=== PATIENT | male | born 1950 | race Caucasian/White ===

== ENCOUNTER 2017-02-22 09:44 | Emergency (ER) | payer MEDICARE, MEDICAID ==
[~2017-02-22] VITALS: Ht 188 cm; Wt 96.3 kg
[~2017-02-22 09:44] MED LIST: AMIO200T57 PO; APIX5TAB3 PO; ASPI-611 PO; ATOR20TA66 PO; CARV6.253 PO; FERR324T4 PO; FURO-149 PO; LORA-269 PO; LOSA25TA96 PO; MAGN64TA10 PO; NITR0.4T SL; PANT40TA4 PO; POTA20TA10 PO
[2017-02-22] MEDS ORDERED: SULF1TAB48 PO (10:09)
[2017-02-22] MEDS ORDERED: CefTRIAXone 1000mg IM Kit (w/lidocaine diluent) IM ONE (10:10)
[2017-02-22 10:41] VITALS: BP 138/81
== END 2017-02-22 10:35 | disposition home or self-care (01) ==
LOC: ER 09:45
DX: L03.032 Cellulitis of left toe (principal); I48.91 Unspecified atrial fibrillation; I25.10 Atherosclerotic heart disease of native coronary artery without angina pectoris; I11.0 Hypertensive heart disease with heart failure; I50.9 Heart failure, unspecified; Z88.1 Allergy status to other antibiotic agents
CPT/HCPCS: 96372; 99284; J0696

== ENCOUNTER 2017-03-04 08:37 | Day surgery (SDC) | payer MEDICARE, MEDICAID ==
[~2017-03-04] VITALS: Ht 188 cm; Wt 100.0 kg
[~2017-03-04 08:37] MED LIST changes: +SULF1TAB48 PO
[2017-03-04] MEDS ORDERED: FURO-150 PO (09:12)
[2017-03-04] MEDS ORDERED: MULT-1085 PO (09:12)
[2017-03-04] MEDS ORDERED: SACU1TAB PO (09:12)
[2017-03-04] MEDS ORDERED: normal saline 1000ml 1,000 ML IV SCH (09:15)
[2017-03-04] MEDS ORDERED: FERR325T28 PO (09:28)
[2017-03-04] MEDS ORDERED: LORazepam 0.5 MG tablet PO PRN (09:45)
[2017-03-04 10:09] LABS: BASOPHILS # (AUTO) 0.1 X10'3 (0-0.2); BASOPHILS % (AUTO) 0.8 % (0-1); EOSINOPHILS # (AUTO) 0.3 X10'3 (0-0.9); EOSINOPHILS % (AUTO) 3.8 % (0-6); HEMATOCRIT 38.6 % (42.0-52.0); HEMOGLOBIN 12.9 g/dl (14.0-17.9); LYMPHOCYTES # (AUTO) 1.1 X10'3 (1.1-4.8); LYMPHOCYTES % (AUTO) 12.8 % (21-51); MEAN CORPUSCULAR HEMOGLOBIN 29.6 PG (27.0-31.0); MEAN CORPUSCULAR HGB CONC 33.5 % (33.0-36.5); MEAN CORPUSCULAR VOLUME 88.3 FL (78-98); MEAN PLATELET VOLUME 8.6 FL (7.4-10.4); MONOCYTES # (AUTO) 0.8 X10'3 (0-0.9); MONOCYTES % (AUTO) 8.6 % (2-12); NEUTROPHILS # (AUTO) 6.6 X10'3 (1.8-7.7); PLATELET COUNT 252 X10'3 (140-440); RED BLOOD COUNT 4.37 X10'6 (4.70-6.10); RED CELL DISTRIBUTION WIDTH 16.5 % (11.5-14.5)
[2017-03-04 10:14] LABS: ALBUMIN 3.5 G/DL (3.4-5.0); ANION GAP 8 (8-16); BLOOD UREA NITROGEN 19 MG/DL (7-18); BUN/CREATININE RATIO 11.2 (5.4-32.0); CALCIUM 9.1 MG/DL (8.5-10.1); CHLORIDE 101 MMOL/L (99-107); GLUCOSE 95 MG/DL (70-104); POTASSIUM 3.7 MMOL/L (3.5-5.1); SODIUM 140 MMOL/L (135-145); TOTAL CARBON DIOXIDE 30.6 MMOL/L (24-32); eGFR 40 ML/MIN
[2017-03-04 10:15] VITALS: BP 155/98
[2017-03-04] MEDS ORDERED: iohexol 350MG/ML 100ml bottle IV ONE (12:11)
[2017-03-04] MEDS ORDERED: iohexol 350 MG/ML 50ML vial IV ONE (12:12)
[2017-03-04 14:34] VITALS: BP 145/82
[2017-03-04 14:42] VITALS: BP 145/82
== END 2017-03-04 14:42 | disposition home or self-care (01) ==
LOC: SSTAY O 08:37
PROVIDERS: ATTEND Radiology Vascular & Interventional Radiology
DX: I70.203 Unspecified atherosclerosis of native arteries of extremities, bilateral legs (principal); I70.1 Atherosclerosis of renal artery; I48.91 Unspecified atrial fibrillation; K21.9 Gastro-esophageal reflux disease without esophagitis; I10 Essential (primary) hypertension; I77.1 Stricture of artery; I72.3 Aneurysm of iliac artery; I25.10 Atherosclerotic heart disease of native coronary artery without angina pectoris; Z95.1 Presence of aortocoronary bypass graft; Z98.890 Other specified postprocedural states; Z87.891 Personal history of nicotine dependence; Z72.89 Other problems related to lifestyle; Z86.73 Personal history of transient ischemic attack (TIA), and cerebral infarction without residual deficits; Z88.6 Allergy status to analgesic agent; Z88.8 Allergy status to other drugs, medicaments and biological substances; Z79.82 Long term (current) use of aspirin; Z91.030 Bee allergy status
CPT/HCPCS: 36415; 75635; 80048; 85025; J7030; Q9967

== ENCOUNTER 2017-03-20 09:34 | Inpatient (IN) | payer MEDICARE, MEDICAID ==
[~2017-03-20] VITALS: Ht 188 cm; Wt 100.0 kg
[~2017-03-20 09:34] MED LIST changes: -CARV6.253 PO; -FERR324T4 PO; +FERR325T28 PO; -FURO-149 PO; +FURO-150 PO; -LOSA25TA96 PO; -MAGN64TA10 PO; +MULT-1085 PO; +SACU1TAB PO; -SULF1TAB48 PO
[2017-03-20 10:14] LABS: BASOPHILS % (AUTO) 0.1 % (0-1); EOSINOPHILS # (AUTO) 0.2 X10'3 (0-0.9); EOSINOPHILS % (AUTO) 1.6 % (0-6); HEMATOCRIT 34.5 % (42.0-52.0); HEMOGLOBIN 11.4 g/dl (14.0-17.9); LYMPHOCYTES # (AUTO) 0.9 X10'3 (1.1-4.8); LYMPHOCYTES % (AUTO) 8.8 % (21-51); MEAN CORPUSCULAR HEMOGLOBIN 29.3 PG (27.0-31.0); MEAN CORPUSCULAR HGB CONC 33.1 % (33.0-36.5); MEAN CORPUSCULAR VOLUME 88.4 FL (78-98); MEAN PLATELET VOLUME 9.1 FL (7.4-10.4); MONOCYTES # (AUTO) 1.1 X10'3 (0-0.9); MONOCYTES % (AUTO) 10.9 % (2-12); NEUTROPHILS # (AUTO) 7.9 X10'3 (1.8-7.7); NEUTROPHILS % (AUTO) 78.6 % (42-75); PLATELET COUNT 220 X10'3 (140-440); RED BLOOD COUNT 3.91 X10'6 (4.70-6.10)
[2017-03-20 10:21] LABS: INR 1.1 INR; PARTIAL THROMBOPLASTIN TIME 32 SECONDS (22-32); PROTHROMBIN TIME 11.7 SECONDS (9.0-12.0)
[2017-03-20 10:25] LABS: ALANINE AMINOTRANSFERASE 25 U/L (12-78); ALBUMIN 3.3 G/DL (3.4-5.0); ALBUMIN/GLOBULIN RATIO 0.9 (1.1-1.5); ALKALINE PHOSPHATASE 89 IU/L (46-116); ANION GAP 9 (8-16); ASPARTATE AMINO TRANSFERASE 11 U/L (10-37); BILIRUBIN,TOTAL 0.8 MG/DL (0.1-1.0); BLOOD UREA NITROGEN 28 MG/DL (7-18); CALCIUM 8.8 MG/DL (8.5-10.1); CHLORIDE 105 MMOL/L (99-107); GLUCOSE 97 MG/DL (70-104); POTASSIUM 4.1 MMOL/L (3.5-5.1); SODIUM 141 MMOL/L (135-145); eGFR 33 ML/MIN
[2017-03-20] MEDS ORDERED: FURO-149 PO (10:27)
[2017-03-20] MEDS ORDERED: SULF1TAB48 PO ×2 (10:27→17:46)
[2017-03-20] MEDS ORDERED: POTA20TA10 PO (10:27)
[2017-03-20] MEDS ORDERED: aspirin 81mg tab.chew PO ONE (11:15)
[2017-03-20] MEDS ORDERED: furosemide 10 MG/1 ML 10ml inj IV ONE (11:15)
[2017-03-20] MEDS ORDERED: nitroGLYCERIN 0.4mg SUBLingual tab SL PRN ×2 (11:15→18:05)
[2017-03-20] MEDS ORDERED: acetaminophen 325mg tablet PO ONE (11:50)
[2017-03-20] MEDS ORDERED: PER10325T PO (14:01)
[2017-03-20] MEDS ORDERED: SULF-18 (14:02)
[2017-03-20 14:37] VITALS: BP 125/60
[2017-03-20 17:30] VITALS: BP 144/71
[2017-03-20] MEDS ORDERED: LORazepam 1 MG tablet PO PRN (18:05)
[2017-03-20 19:00] VITALS: BP 131/66
[2017-03-20] MEDS ORDERED: sulfamethoxazole/trimethoprim DS (800/160mg) tablet PO SCH (20:00)
[2017-03-20] MEDS: sulfamethoxazole/trimethoprim DS (800/160mg) tablet PO SCH (20:18)
[2017-03-20] MEDS: pantoprazole 40mg Tablet.DR PO SCH (20:18)
[2017-03-20] MEDS: apixaban 5mg tablet PO SCH (20:19)
[2017-03-20] MEDS: sacubitril/valsartan 24mg-26mg tablet PO SCH (20:19)
[2017-03-20] MEDS: oxyCODONE/APAP 10/325mg tablet PO SCH (20:21)
[2017-03-20] MEDS ORDERED: ipratropium/albuterol 3ml nebule NEB PRN (22:35)
[2017-03-20] MEDS ORDERED: methylPREDNISolone sod succ 125mg/2ml vial IV ONE (22:41)
[2017-03-20] MEDS ORDERED: azithromycin/NS 500mg/250ml 250 ML IV SCH (22:44)
[2017-03-20 23:00] VITALS: BP 122/55
[2017-03-21] MEDS ORDERED: methylPREDNISolone sod succ 125mg/2ml vial IV SCH (02:00)
[2017-03-21 03:00] VITALS: BP 111/48
[2017-03-21] MEDS: methylPREDNISolone sod succ 125mg/2ml vial IV SCH ×2 (04:44→10:54)
[2017-03-21 06:00] VITALS: BP 115/62
[2017-03-21 07:02] LABS: BASOPHILS % (AUTO) 0.1 % (0-1); EOSINOPHILS # (AUTO) 0.1 X10'3 (0-0.9); EOSINOPHILS % (AUTO) 1.2 % (0-6); HEMATOCRIT 32.1 % (42.0-52.0); LYMPHOCYTES # (AUTO) 0.3 X10'3 (1.1-4.8); LYMPHOCYTES % (AUTO) 6.3 % (21-51); MEAN CORPUSCULAR HEMOGLOBIN 29.3 PG (27.0-31.0); MEAN CORPUSCULAR HGB CONC 34.1 % (33.0-36.5); MEAN CORPUSCULAR VOLUME 85.8 FL (78-98); MEAN PLATELET VOLUME 9.1 FL (7.4-10.4); MONOCYTES # (AUTO) 0.1 X10'3 (0-0.9); MONOCYTES % (AUTO) 1.3 % (2-12); NEUTROPHILS # (AUTO) 4.7 X10'3 (1.8-7.7); NEUTROPHILS % (AUTO) 91.1 % (42-75); PLATELET COUNT 199 X10'3 (140-440); RED BLOOD COUNT 3.74 X10'6 (4.70-6.10); RED CELL DISTRIBUTION WIDTH 16.8 % (11.5-14.5); WHITE BLOOD COUNT 5.1 X10'3 (4.5-11.0)
[2017-03-21 07:26] LABS: ALBUMIN 2.9 G/DL (3.4-5.0); ANION GAP 10 (8-16); BLOOD UREA NITROGEN 30 MG/DL (7-18); BUN/CREATININE RATIO 14.3 (5.4-32.0); CALCIUM 8.5 MG/DL (8.5-10.1); CHLORIDE 103 MMOL/L (99-107); GLUCOSE 142 MG/DL (70-104); MAGNESIUM 1.9 MG/DL (1.5-2.4); POTASSIUM 4.1 MMOL/L (3.5-5.1); SODIUM 138 MMOL/L (135-145); TOTAL CARBON DIOXIDE 24.6 MMOL/L (24-32); eGFR 32 ML/MIN
[2017-03-21 07:40] LABS: INR 1.2 INR; PROTHROMBIN TIME 12.2 SECONDS (9.0-12.0)
[2017-03-21] MEDS: pantoprazole 40mg Tablet.DR PO SCH (07:43)
[2017-03-21] MEDS: apixaban 5mg tablet PO SCH (07:43)
[2017-03-21] MEDS: sulfamethoxazole/trimethoprim DS (800/160mg) tablet PO SCH (07:46)
[2017-03-21] MEDS: oxyCODONE/APAP 10/325mg tablet PO SCH ×2 (08:00→10:49)
[2017-03-21] MEDS ORDERED: multivitamins, therapeutics tablet PO SCH (08:00)
[2017-03-21] MEDS ORDERED: furosemide 40mg tablet PO SCH (08:00)
[2017-03-21] MEDS ORDERED: atorvastatin 20mg tablet PO SCH (08:00)
[2017-03-21] MEDS ORDERED: ferrous sulfate 325mg tablet PO SCH (08:00)
[2017-03-21] MEDS ORDERED: amiodarone 200mg tablet PO SCH (08:00)
[2017-03-21] MEDS ORDERED: aspirin 81mg tablet.DR PO SCH (08:00)
[2017-03-21] MEDS ORDERED: potassium Cl 20 mEq SR tablet PO SCH (08:00)
[2017-03-21] MEDS: sacubitril/valsartan 24mg-26mg tablet PO SCH (10:54)
[2017-03-21 11:00] VITALS: BP 110/54
[2017-03-21] MEDS ORDERED: FURO-149 PO (11:32)
[2017-03-21] MEDS ORDERED: lactobacillus rhamnosus 10,000 MMU CELLS/CAPSULE PO SCH (17:30)
== END 2017-03-21 13:28 | disposition home or self-care (01) | DRG 291 ==
LOC: ER 09:34 → ED HOLD 11:47 → PCU 3S 18:18
PROVIDERS: ADMIT Family Medicine; ATTEND Legal Medicine
DX: I13.0 Hypertensive heart and chronic kidney disease with heart failure and stage 1 through stage 4 chronic kidney disease, or unspecified chronic kidney disease (principal); I50.23 Acute on chronic systolic (congestive) heart failure; J96.00 Acute respiratory failure, unspecified whether with hypoxia or hypercapnia; N17.9 Acute kidney failure, unspecified; I25.10 Atherosclerotic heart disease of native coronary artery without angina pectoris; I48.91 Unspecified atrial fibrillation; I73.9 Peripheral vascular disease, unspecified; N18.9 Chronic kidney disease, unspecified; F17.200 Nicotine dependence, unspecified, uncomplicated; I25.2 Old myocardial infarction; Z95.1 Presence of aortocoronary bypass graft; Z91.030 Bee allergy status; Z88.1 Allergy status to other antibiotic agents; Z88.4 Allergy status to anesthetic agent; Z79.899 Other long term (current) drug therapy; Z79.01 Long term (current) use of anticoagulants; Z82.49 Family history of ischemic heart disease and other diseases of the circulatory system; Z80.9 Family history of malignant neoplasm, unspecified
CPT/HCPCS: 36415; 71045; 80048; 80053; 83735; 83880; 84484; 85025; 85610; 85730; 87070; 93005; 96374; 99285; J0456; J1940; J2930; J7030

== ENCOUNTER 2017-03-26 13:56 | Outpatient (CLI) | payer MEDICARE, MEDICAID ==
[~2017-03-26] VITALS: Ht 184.2 cm; Wt 99.8 kg
[~2017-03-26 13:56] MED LIST changes: +FURO-149 PO; -FURO-150 PO; +PER10325T PO; +SULF-18; +SULF1TAB48 PO
[2017-03-26] MEDS ORDERED: albuterol 2.5 MG/3 ML nebule NEB PRN (14:40)
[2017-03-26] MEDS ORDERED: succinylcholine 20mg/ml inj IV ONE (18:14)
== END 2017-03-26 23:59 | disposition home or self-care (01) ==
LOC: RT 13:56
PROVIDERS: ATTEND Internal Medicine Cardiovascular Disease
DX: R06.09 Other forms of dyspnea (principal); Z87.891 Personal history of nicotine dependence; Z79.01 Long term (current) use of anticoagulants; Z79.899 Other long term (current) drug therapy
CPT/HCPCS: 71046; 94060; 94640; 94727; 94729; 94760; J0330

== ENCOUNTER 2017-04-03 12:51 | Inpatient (IN) | payer MEDICARE, MEDICAID ==
[~2017-04-03] VITALS: Ht 185.4 cm; Wt 95.8 kg
[2017-04-03 13:20] LABS: BASOPHILS % (AUTO) 0.6 % (0-1); EOSINOPHILS # (AUTO) 0.2 X10'3 (0-0.9); EOSINOPHILS % (AUTO) 2.1 % (0-6); HEMATOCRIT 34.5 % (42.0-52.0); HEMOGLOBIN 11.3 g/dl (14.0-17.9); LYMPHOCYTES # (AUTO) 1.2 X10'3 (1.1-4.8); LYMPHOCYTES % (AUTO) 14.3 % (21-51); MEAN CORPUSCULAR HEMOGLOBIN 28.3 PG (27.0-31.0); MEAN CORPUSCULAR HGB CONC 32.8 % (33.0-36.5); MEAN CORPUSCULAR VOLUME 86.5 FL (78-98); MONOCYTES # (AUTO) 0.9 X10'3 (0-0.9); NEUTROPHILS # (AUTO) 6.3 X10'3 (1.8-7.7); PLATELET COUNT 234 X10'3 (140-440); RED BLOOD COUNT 3.99 X10'6 (4.70-6.10); RED CELL DISTRIBUTION WIDTH 16.8 % (11.5-14.5); WHITE BLOOD COUNT 8.6 X10'3 (4.5-11.0)
[2017-04-03 13:32] LABS: INR 1.2 INR; PARTIAL THROMBOPLASTIN TIME 30 SECONDS (22-32)
[2017-04-03 13:48] LABS: ALANINE AMINOTRANSFERASE 18 U/L (12-78); ALBUMIN 3.3 G/DL (3.4-5.0); ALBUMIN/GLOBULIN RATIO 0.9 (1.1-1.5); ALKALINE PHOSPHATASE 83 IU/L (46-116); ANION GAP 12 (8-16); ASPARTATE AMINO TRANSFERASE 11 U/L (10-37); BILIRUBIN,TOTAL 0.7 MG/DL (0.1-1.0); BLOOD UREA NITROGEN 33 MG/DL (7-18); BUN/CREATININE RATIO 14.9 (5.4-32.0); CHLORIDE 104 MMOL/L (99-107); CREATININE 2.21 MG/DL (0.60-1.10); GLUCOSE 110 MG/DL (70-104); MAGNESIUM 2.1 MG/DL (1.5-2.4); POTASSIUM 4.2 MMOL/L (3.5-5.1); SODIUM 143 MMOL/L (135-145); TOTAL CARBON DIOXIDE 27.5 MMOL/L (24-32); TOTAL PROTEIN 7.1 G/DL (6.4-8.2); eGFR 30 ML/MIN
[2017-04-03] MEDS ORDERED: furosemide 40mg/4ml inj IV ONE (14:50)
[2017-04-03] MEDS ORDERED: ondansetron/PF 4mg/2ml inj IV PRN (15:15)
[2017-04-03] MEDS ORDERED: diphenhydrAMINE 25mg capsule PO PRN (15:15)
[2017-04-03] MEDS ORDERED: acetaminophen 325mg tablet PO PRN (15:15)
[2017-04-03] MEDS ORDERED: metoclopramide 5 mg/ml inj IV PRN (15:15)
[2017-04-03] MEDS ORDERED: mag hydrox/Alum hydrox/simeth 30ml oral suspension PO PRN (15:15)
[2017-04-03] MEDS ORDERED: diphenhydrAMINE 50 mg/ml inj IV PRN (15:15)
[2017-04-03] MEDS ORDERED: magnesium hydroxide 30ml (MOM) UD suspension PO PRN (15:15)
[2017-04-03] MEDS ORDERED: bisacodyl 10mg suppository rectal RC PRN (15:15)
[2017-04-03] MEDS ORDERED: HYDROcodone/acetaminophen 5mg/325mg tablet PO PRN (15:15)
[2017-04-03] MEDS ORDERED: acetaminophen 650mg rectal suppository RC PRN (15:15)
[2017-04-03] MEDS ORDERED: levoFLOXACIN-Levaquin 500mg/D5 100 ML IV ONE (15:30)
[2017-04-03] MEDS ORDERED: SULF-14 PO (15:36)
[2017-04-03] MEDS ORDERED: FURO40TA4 PO (15:38)
[2017-04-03] MEDS ORDERED: methylPREDNISolone sod succ 125mg/2ml vial IV ONE (15:45)
[2017-04-03] MEDS ORDERED: ipratropium/albuterol 3ml nebule NEB ONE (15:45)
[2017-04-03] MEDS ORDERED: albuterol 2.5 MG/3 ML nebule NEB ONE (15:45)
[2017-04-03 17:47] LABS: PHOSPHORUS 3.6 MG/DL (2.3-4.5)
[2017-04-03 19:00] VITALS: BP 125/63
[2017-04-03] MEDS: docusate sod 100mg capsule PO SCH (20:02)
[2017-04-03] MEDS: sacubitril/valsartan 24mg-26mg tablet PO SCH (20:02)
[2017-04-03] MEDS: apixaban 5mg tablet PO SCH (20:03)
[2017-04-03] MEDS: LORazepam 1 MG tablet PO PRN (20:03)
[2017-04-03] MEDS: pantoprazole 40mg Tablet.DR PO SCH (20:03)
[2017-04-03 23:00] VITALS: BP 108/46
[2017-04-04 01:36] LABS: BASOPHILS % (AUTO) 0.1 % (0-1); EOSINOPHILS % (AUTO) 0.1 % (0-6); HEMATOCRIT 31.4 % (42.0-52.0); HEMOGLOBIN 10.4 g/dl (14.0-17.9); LYMPHOCYTES # (AUTO) 0.3 X10'3 (1.1-4.8); LYMPHOCYTES % (AUTO) 4.7 % (21-51); MEAN CORPUSCULAR HEMOGLOBIN 28.3 PG (27.0-31.0); MEAN CORPUSCULAR HGB CONC 33.1 % (33.0-36.5); MEAN CORPUSCULAR VOLUME 85.3 FL (78-98); MEAN PLATELET VOLUME 9.7 FL (7.4-10.4); MONOCYTES # (AUTO) 0.1 X10'3 (0-0.9); NEUTROPHILS # (AUTO) 5.4 X10'3 (1.8-7.7); NEUTROPHILS % (AUTO) 94.1 % (42-75); PLATELET COUNT 219 X10'3 (140-440); RED BLOOD COUNT 3.68 X10'6 (4.70-6.10); RED CELL DISTRIBUTION WIDTH 16.3 % (11.5-14.5); WHITE BLOOD COUNT 5.8 X10'3 (4.5-11.0)
[2017-04-04 02:01] LABS: ALANINE AMINOTRANSFERASE 21 U/L (12-78); ALBUMIN/GLOBULIN RATIO 0.8 (1.1-1.5); ALKALINE PHOSPHATASE 75 IU/L (46-116); ANION GAP 10 (8-16); ASPARTATE AMINO TRANSFERASE 10 U/L (10-37); BILIRUBIN,TOTAL 0.8 MG/DL (0.1-1.0); BLOOD UREA NITROGEN 37 MG/DL (7-18); BUN/CREATININE RATIO 15.5 (5.4-32.0); CALCIUM 8.4 MG/DL (8.5-10.1); CHLORIDE 103 MMOL/L (99-107); CREATININE 2.39 MG/DL (0.60-1.10); GLUCOSE 138 MG/DL (70-104); POTASSIUM 3.9 MMOL/L (3.5-5.1); SODIUM 141 MMOL/L (135-145); TOTAL CARBON DIOXIDE 27.8 MMOL/L (24-32); TOTAL PROTEIN 6.6 G/DL (6.4-8.2); eGFR 27 ML/MIN
[2017-04-04 03:00] VITALS: BP 113/53
[2017-04-04 07:07] VITALS: BP 118/64
[2017-04-04] MEDS ORDERED: pantoprazole 40mg Tablet.DR PO SCH (07:30)
[2017-04-04] MEDS: pantoprazole 40mg Tablet.DR PO SCH ×2 (08:51→19:52)
[2017-04-04] MEDS: docusate sod 100mg capsule PO SCH ×2 (08:51→19:55)
[2017-04-04] MEDS: sacubitril/valsartan 24mg-26mg tablet PO SCH ×3 (08:51→19:52)
[2017-04-04] MEDS: furosemide 10 MG/1 ML 10ml inj IV SCH (08:53)
[2017-04-04] MEDS: apixaban 5mg tablet PO SCH ×2 (08:54→19:52)
[2017-04-04 11:00] VITALS: BP 126/50
[2017-04-04] MEDS ORDERED: nitroGLYCERIN 0.4mg SUBLingual tab SL PRN (13:35)
[2017-04-04] MEDS ORDERED: LORazepam 1 MG tablet PO PRN (13:35)
[2017-04-04] MEDS: amiodarone 200mg tablet PO SCH (13:57)
[2017-04-04 15:00] VITALS: BP 110/55
[2017-04-04] MEDS: oxyCODONE/APAP 10/325mg tablet PO SCH ×2 (17:00→19:55)
[2017-04-04 18:45] LABS: CLARITY,URINE CLEAR (Clear); COLOR,URINE YELLOW (Yellow); GLUCOSE, URINE NEGATIVE (Neg); KETONES,URINE NEGATIVE (Neg); LEUKOCYTE ESTERASE ,URINE NEGATIVE (Neg); NITRITES, URINE NEGATIVE (Neg); OCCULT BLOOD,URINE NEGATIVE (Neg); PH,URINE 6.5 (4.8-8.0); PROTEIN,URINE NEGATIVE (Neg); UROBILINOGEN,URINE 0.2 E.U/dL (0.2-1.0)
[2017-04-04 18:51] LABS: URINE AMPHETAMINE SCREEN NEGATIVE (Neg); URINE BARBITUATE SCREEN NEGATIVE (Neg); URINE BENZODIAZEPINES SCREEN NEGATIVE (Neg); URINE CANNABINOID SCREEN NEGATIVE (Neg); URINE COCAINE SCREEN NEGATIVE (Neg); URINE METHADONE SCREEN NEGATIVE (Neg); URINE OPIATE SCREEN NEGATIVE (Neg); URINE PHENCYCLIDINE SCREEN NEGATIVE (Neg)
[2017-04-04 19:00] VITALS: BP 112/66
[2017-04-04 19:01] LABS: UA COLLECTION TYPE URINAL
[2017-04-04] MEDS: LORazepam 1 MG tablet PO PRN (19:51)
[2017-04-04] MEDS ORDERED: apixaban 5mg tablet PO SCH (20:00)
[2017-04-04 23:00] VITALS: BP 113/66
[2017-04-05] VITALS (10 sets, daily range): BP systolic 83–122; BP diastolic 48–64
[2017-04-05 06:02] LABS: BASOPHILS % (AUTO) 0.4 % (0-1); EOSINOPHILS # (AUTO) 0.1 X10'3 (0-0.9); EOSINOPHILS % (AUTO) 0.7 % (0-6); HEMATOCRIT 29.4 % (42.0-52.0); HEMOGLOBIN 9.7 g/dl (14.0-17.9); LYMPHOCYTES # (AUTO) 1.2 X10'3 (1.1-4.8); LYMPHOCYTES % (AUTO) 11.8 % (21-51); MEAN CORPUSCULAR HEMOGLOBIN 28.6 PG (27.0-31.0); MEAN CORPUSCULAR HGB CONC 33.2 % (33.0-36.5); MEAN CORPUSCULAR VOLUME 86.2 FL (78-98); MEAN PLATELET VOLUME 9.1 FL (7.4-10.4); MONOCYTES % (AUTO) 9.5 % (2-12); NEUTROPHILS # (AUTO) 7.8 X10'3 (1.8-7.7); NEUTROPHILS % (AUTO) 77.6 % (42-75); PLATELET COUNT 198 X10'3 (140-440); RED BLOOD COUNT 3.41 X10'6 (4.70-6.10); RED CELL DISTRIBUTION WIDTH 17.3 % (11.5-14.5); WHITE BLOOD COUNT 10.1 X10'3 (4.5-11.0)
[2017-04-05 06:38] LABS: ALANINE AMINOTRANSFERASE 16 U/L (12-78); ALBUMIN 2.8 G/DL (3.4-5.0); ALBUMIN/GLOBULIN RATIO 0.9 (1.1-1.5); ALKALINE PHOSPHATASE 65 IU/L (46-116); ANION GAP 9 (8-16); ASPARTATE AMINO TRANSFERASE 10 U/L (10-37); BILIRUBIN,TOTAL 0.5 MG/DL (0.1-1.0); BLOOD UREA NITROGEN 43 MG/DL (7-18); BUN/CREATININE RATIO 19.1 (5.4-32.0); CALCIUM 8.6 MG/DL (8.5-10.1); CHLORIDE 104 MMOL/L (99-107); CREATININE 2.25 MG/DL (0.60-1.10); GLUCOSE 99 MG/DL (70-104); POTASSIUM 3.6 MMOL/L (3.5-5.1); SODIUM 141 MMOL/L (135-145); TOTAL CARBON DIOXIDE 28.1 MMOL/L (24-32); eGFR 29 ML/MIN
[2017-04-05] MEDS: ferrous sulfate 325mg tablet PO SCH (07:59)
[2017-04-05] MEDS: pantoprazole 40mg Tablet.DR PO SCH ×2 (07:59→19:45)
[2017-04-05] MEDS ORDERED: aspirin 81mg tablet.DR PO SCH (08:00)
[2017-04-05] MEDS: docusate sod 100mg capsule PO SCH ×2 (08:00→19:45)
[2017-04-05] MEDS: sacubitril/valsartan 24mg-26mg tablet PO SCH ×3 (08:00→19:45)
[2017-04-05] MEDS: apixaban 5mg tablet PO SCH (08:00)
[2017-04-05] MEDS: levoFLOXACIN-Levaquin 500mg/D5 100 ML IV SCH (08:00)
[2017-04-05] MEDS: atorvastatin 20mg tablet PO SCH (08:00)
[2017-04-05] MEDS: amiodarone 200mg tablet PO SCH (08:00)
[2017-04-05] MEDS: oxyCODONE/APAP 10/325mg tablet PO SCH ×4 (08:00→20:17)
[2017-04-05] MEDS: aspirin 81mg tablet.DR PO SCH (08:00)
[2017-04-05] MEDS: furosemide 10 MG/1 ML 10ml inj IV SCH (08:00)
[2017-04-05] MEDS ORDERED: ipratropium/albuterol 3ml nebule NEB PRN (14:00)
[2017-04-05] MEDS: ipratropium/albuterol 3ml nebule NEB SCH ×2 (14:00→20:00)
[2017-04-05] MEDS: lactobacillus rhamnosus 10,000 MMU CELLS/CAPSULE PO SCH (17:29)
[2017-04-05] MEDS: furosemide 20 MG/2 ML vial IV SCH (19:45)
[2017-04-05] MEDS: LORazepam 1 MG tablet PO PRN (22:04)
[2017-04-06 03:00] VITALS: BP 102/69
[2017-04-06] MEDS: ipratropium/albuterol 3ml nebule NEB SCH ×4 (03:03→21:15)
[2017-04-06 06:00] VITALS: BP 101/60
[2017-04-06 06:02] LABS: BASOPHILS # (AUTO) 0.1 X10'3 (0-0.2); BASOPHILS % (AUTO) 0.7 % (0-1); EOSINOPHILS # (AUTO) 0.6 X10'3 (0-0.9); EOSINOPHILS % (AUTO) 6.9 % (0-6); LYMPHOCYTES # (AUTO) 1.1 X10'3 (1.1-4.8); MEAN CORPUSCULAR HEMOGLOBIN 28.7 PG (27.0-31.0); MEAN CORPUSCULAR HGB CONC 33.4 % (33.0-36.5); MEAN CORPUSCULAR VOLUME 85.8 FL (78-98); MEAN PLATELET VOLUME 9.3 FL (7.4-10.4); MONOCYTES # (AUTO) 0.9 X10'3 (0-0.9); MONOCYTES % (AUTO) 10.6 % (2-12); NEUTROPHILS # (AUTO) 6.1 X10'3 (1.8-7.7); NEUTROPHILS % (AUTO) 69.8 % (42-75); PLATELET COUNT 192 X10'3 (140-440); RED CELL DISTRIBUTION WIDTH 17.4 % (11.5-14.5); WHITE BLOOD COUNT 8.8 X10'3 (4.5-11.0)
[2017-04-06 06:41] LABS: ALANINE AMINOTRANSFERASE 20 U/L (12-78); ALBUMIN 2.8 G/DL (3.4-5.0); ALBUMIN/GLOBULIN RATIO 0.9 (1.1-1.5); ALKALINE PHOSPHATASE 66 IU/L (46-116); ANION GAP 12 (8-16); ASPARTATE AMINO TRANSFERASE 9 U/L (10-37); BILIRUBIN,TOTAL 0.6 MG/DL (0.1-1.0); BLOOD UREA NITROGEN 39 MG/DL (7-18); CALCIUM 7.9 MG/DL (8.5-10.1); CHLORIDE 104 MMOL/L (99-107); CREATININE 2.05 MG/DL (0.60-1.10); GLUCOSE 91 MG/DL (70-104); POTASSIUM 3.3 MMOL/L (3.5-5.1); SODIUM 143 MMOL/L (135-145); TOTAL CARBON DIOXIDE 27.2 MMOL/L (24-32); TOTAL PROTEIN 5.9 G/DL (6.4-8.2); eGFR 32 ML/MIN
[2017-04-06] MEDS ORDERED: potassium Cl 20 mEq SR tablet PO PRN ×3 (07:30→18:30)
[2017-04-06] MEDS ORDERED: potassium Cl 40MEQ/NS 500ml 500 ML IV PRN ×2 (07:30)
[2017-04-06] MEDS: oxyCODONE/APAP 10/325mg tablet PO SCH ×4 (08:00→21:00)
[2017-04-06] MEDS: pantoprazole 40mg Tablet.DR PO SCH ×2 (08:03→20:29)
[2017-04-06] MEDS: sacubitril/valsartan 24mg-26mg tablet PO SCH ×2 (08:04→20:00)
[2017-04-06] MEDS: ferrous sulfate 325mg tablet PO SCH (08:05)
[2017-04-06] MEDS: potassium Cl 20 mEq SR tablet PO PRN ×3 (08:05→17:08)
[2017-04-06] MEDS: aspirin 81mg tablet.DR PO SCH (08:05)
[2017-04-06] MEDS: lactobacillus rhamnosus 10,000 MMU CELLS/CAPSULE PO SCH ×2 (08:05→17:07)
[2017-04-06] MEDS: atorvastatin 20mg tablet PO SCH (08:06)
[2017-04-06] MEDS: amiodarone 200mg tablet PO SCH (08:06)
[2017-04-06] MEDS: docusate sod 100mg capsule PO SCH ×2 (08:06→20:29)
[2017-04-06] MEDS: furosemide 20 MG/2 ML vial IV SCH ×2 (08:07→20:29)
[2017-04-06] MEDS ORDERED: HYDROmorphone inj. 0.5 MG/0.5 ML DISP.SYRIN IV PRN (10:15)
[2017-04-06] MEDS ORDERED: furosemide 20 MG/2 ML vial IV ONE ×2 (12:45→17:00)
[2017-04-06 13:01] VITALS: BP 110/50
[2017-04-06 15:00] VITALS: BP 127/72
[2017-04-06] MEDS ORDERED: potassium Cl 20 mEq SR tablet PO ONE (17:00)
[2017-04-06 18:30] VITALS: BP 101/71
[2017-04-06 22:00] VITALS: BP 142/75
[2017-04-06] MEDS: LORazepam 1 MG tablet PO PRN (22:18)
[2017-04-07] VITALS (11 sets, daily range): BP systolic 87–122; BP diastolic 40–77
[2017-04-07] MEDS: temazepam 15mg capsule PO PRN (01:47)
[2017-04-07] MEDS: ipratropium/albuterol 3ml nebule NEB SCH ×4 (03:01→20:21)
[2017-04-07] MEDS: aspirin 81mg tablet.DR PO SCH (06:45)
[2017-04-07 07:06] LABS: BASOPHILS % (AUTO) 0.5 % (0-1); EOSINOPHILS # (AUTO) 0.8 X10'3 (0-0.9); EOSINOPHILS % (AUTO) 11.5 % (0-6); HEMOGLOBIN 10.3 g/dl (14.0-17.9); LYMPHOCYTES # (AUTO) 0.9 X10'3 (1.1-4.8); LYMPHOCYTES % (AUTO) 12.8 % (21-51); MEAN CORPUSCULAR HEMOGLOBIN 28.5 PG (27.0-31.0); MEAN CORPUSCULAR HGB CONC 33.2 % (33.0-36.5); MEAN CORPUSCULAR VOLUME 86.1 FL (78-98); MEAN PLATELET VOLUME 9.2 FL (7.4-10.4); MONOCYTES # (AUTO) 0.9 X10'3 (0-0.9); MONOCYTES % (AUTO) 12.9 % (2-12); NEUTROPHILS # (AUTO) 4.5 X10'3 (1.8-7.7); NEUTROPHILS % (AUTO) 62.3 % (42-75); PLATELET COUNT 204 X10'3 (140-440); RED CELL DISTRIBUTION WIDTH 17.2 % (11.5-14.5); WHITE BLOOD COUNT 7.2 X10'3 (4.5-11.0)
[2017-04-07] MEDS: atorvastatin 20mg tablet PO SCH (07:37)
[2017-04-07] MEDS: ferrous sulfate 325mg tablet PO SCH (07:37)
[2017-04-07] MEDS: lactobacillus rhamnosus 10,000 MMU CELLS/CAPSULE PO SCH ×2 (07:37→17:18)
[2017-04-07] MEDS: sacubitril/valsartan 24mg-26mg tablet PO SCH ×2 (07:37→19:50)
[2017-04-07] MEDS: amiodarone 200mg tablet PO SCH (07:37)
[2017-04-07 07:38] LABS: ALANINE AMINOTRANSFERASE 21 U/L (12-78); ALBUMIN/GLOBULIN RATIO 0.9 (1.1-1.5); ALKALINE PHOSPHATASE 68 IU/L (46-116); ANION GAP 11 (8-16); ASPARTATE AMINO TRANSFERASE 10 U/L (10-37); BILIRUBIN,TOTAL 0.6 MG/DL (0.1-1.0); BLOOD UREA NITROGEN 32 MG/DL (7-18); BUN/CREATININE RATIO 16.3 (5.4-32.0); CALCIUM 8.3 MG/DL (8.5-10.1); CHLORIDE 105 MMOL/L (99-107); CREATININE 1.96 MG/DL (0.60-1.10); GLUCOSE 93 MG/DL (70-104); MAGNESIUM 2.3 MG/DL (1.5-2.4); POTASSIUM 3.5 MMOL/L (3.5-5.1); SODIUM 144 MMOL/L (135-145); TOTAL CARBON DIOXIDE 28.5 MMOL/L (24-32); TOTAL PROTEIN 6.2 G/DL (6.4-8.2); eGFR 34 ML/MIN
[2017-04-07] MEDS: docusate sod 100mg capsule PO SCH ×2 (07:38→19:50)
[2017-04-07] MEDS: levoFLOXACIN-Levaquin 500mg/D5 100 ML IV SCH (07:38)
[2017-04-07] MEDS: pantoprazole 40mg Tablet.DR PO SCH ×2 (07:38→19:50)
[2017-04-07] MEDS: furosemide 20 MG/2 ML vial IV SCH ×2 (07:38→19:50)
[2017-04-07] MEDS: oxyCODONE/APAP 10/325mg tablet PO SCH ×4 (08:00→20:09)
[2017-04-07 14:08] LABS: GLUCOSE,BODY FLUID 122 MG/DL; LDH,BODY FLUID 63 U/L
[2017-04-07 15:02] LABS: TOTAL PROTEIN,BODY FLUID < 2.0 G/DL
[2017-04-07] MEDS: apixaban 5mg tablet PO SCH (19:50)
[2017-04-07] MEDS: LORazepam 1 MG tablet PO PRN (22:13)
[2017-04-08] MEDS: temazepam 15mg capsule PO PRN (00:07)
[2017-04-08] MEDS: ipratropium/albuterol 3ml nebule NEB SCH ×2 (02:47→08:27)
[2017-04-08 03:00] VITALS: BP 101/56
[2017-04-08 05:07] LABS: BASOPHILS # (AUTO) 0.1 X10'3 (0-0.2); BASOPHILS % (AUTO) 0.9 % (0-1); EOSINOPHILS # (AUTO) 0.8 X10'3 (0-0.9); EOSINOPHILS % (AUTO) 13.2 % (0-6); HEMATOCRIT 28.8 % (42.0-52.0); HEMOGLOBIN 9.7 g/dl (14.0-17.9); LYMPHOCYTES # (AUTO) 1.2 X10'3 (1.1-4.8); LYMPHOCYTES % (AUTO) 18.3 % (21-51); MEAN CORPUSCULAR HEMOGLOBIN 28.7 PG (27.0-31.0); MEAN CORPUSCULAR HGB CONC 33.7 % (33.0-36.5); MEAN CORPUSCULAR VOLUME 85.3 FL (78-98); MONOCYTES # (AUTO) 0.7 X10'3 (0-0.9); NEUTROPHILS # (AUTO) 3.6 X10'3 (1.8-7.7); NEUTROPHILS % (AUTO) 56.6 % (42-75); PLATELET COUNT 178 X10'3 (140-440); RED BLOOD COUNT 3.38 X10'6 (4.70-6.10); RED CELL DISTRIBUTION WIDTH 17.3 % (11.5-14.5); WHITE BLOOD COUNT 6.3 X10'3 (4.5-11.0)
[2017-04-08 05:20] LABS: ALANINE AMINOTRANSFERASE 14 U/L (12-78); ALBUMIN 2.5 G/DL (3.4-5.0); ALBUMIN/GLOBULIN RATIO 0.8 (1.1-1.5); ALKALINE PHOSPHATASE 64 IU/L (46-116); ANION GAP 9 (8-16); ASPARTATE AMINO TRANSFERASE 9 U/L (10-37); BILIRUBIN,TOTAL 0.5 MG/DL (0.1-1.0); BLOOD UREA NITROGEN 26 MG/DL (7-18); BUN/CREATININE RATIO 13.3 (5.4-32.0); CALCIUM 8.1 MG/DL (8.5-10.1); CHLORIDE 105 MMOL/L (99-107); CREATININE 1.96 MG/DL (0.60-1.10); GLUCOSE 129 MG/DL (70-104); MAGNESIUM 2.1 MG/DL (1.5-2.4); POTASSIUM 3.4 MMOL/L (3.5-5.1); SODIUM 142 MMOL/L (135-145); TOTAL CARBON DIOXIDE 28.3 MMOL/L (24-32); TOTAL PROTEIN 5.6 G/DL (6.4-8.2); eGFR 34 ML/MIN
[2017-04-08 06:00] VITALS: BP 96/57
[2017-04-08] MEDS: pantoprazole 40mg Tablet.DR PO SCH ×2 (07:31→21:03)
[2017-04-08] MEDS: aspirin 81mg tablet.DR PO SCH (07:31)
[2017-04-08] MEDS: furosemide 20 MG/2 ML vial IV SCH ×2 (07:31→21:02)
[2017-04-08] MEDS: ferrous sulfate 325mg tablet PO SCH (07:31)
[2017-04-08] MEDS: amiodarone 200mg tablet PO SCH (07:31)
[2017-04-08] MEDS: atorvastatin 20mg tablet PO SCH (07:32)
[2017-04-08] MEDS: apixaban 5mg tablet PO SCH ×2 (07:32→21:03)
[2017-04-08] MEDS: docusate sod 100mg capsule PO SCH ×2 (07:32→21:02)
[2017-04-08] MEDS: lactobacillus rhamnosus 10,000 MMU CELLS/CAPSULE PO SCH ×2 (07:32→17:13)
[2017-04-08] MEDS: potassium Cl 20 mEq SR tablet PO PRN ×3 (07:35→17:21)
[2017-04-08] MEDS: sacubitril/valsartan 24mg-26mg tablet PO SCH ×2 (07:39→21:03)
[2017-04-08] MEDS: oxyCODONE/APAP 10/325mg tablet PO SCH ×4 (08:00→21:00)
[2017-04-08 11:00] VITALS: BP 123/77
[2017-04-08] MEDS ORDERED: furosemide 20 MG/2 ML vial IV ONE (11:00)
[2017-04-08 15:00] VITALS: BP 118/67
[2017-04-08 18:00] VITALS: BP 131/72
[2017-04-08 22:00] VITALS: BP 139/78
[2017-04-08] MEDS: LORazepam 1 MG tablet PO PRN (22:19)
[2017-04-09] MEDS: temazepam 15mg capsule PO PRN (00:49)
[2017-04-09 02:00] VITALS: BP 108/48
[2017-04-09 05:59] LABS: MAGNESIUM 2.1 MG/DL (1.5-2.4); POTASSIUM 3.6 MMOL/L (3.5-5.1)
[2017-04-09 06:00] VITALS: BP 138/63
[2017-04-09] MEDS: oxyCODONE/APAP 10/325mg tablet PO SCH ×3 (08:00→16:44)
[2017-04-09] MEDS: sacubitril/valsartan 24mg-26mg tablet PO SCH ×2 (08:32→20:05)
[2017-04-09] MEDS: amiodarone 200mg tablet PO SCH (08:32)
[2017-04-09] MEDS: furosemide 20 MG/2 ML vial IV SCH ×2 (08:32→20:06)
[2017-04-09] MEDS: atorvastatin 20mg tablet PO SCH (08:33)
[2017-04-09] MEDS: apixaban 5mg tablet PO SCH ×2 (08:33→20:05)
[2017-04-09] MEDS: aspirin 81mg tablet.DR PO SCH (08:33)
[2017-04-09] MEDS: ferrous sulfate 325mg tablet PO SCH (08:33)
[2017-04-09] MEDS: docusate sod 100mg capsule PO SCH ×2 (08:33→20:06)
[2017-04-09] MEDS: pantoprazole 40mg Tablet.DR PO SCH ×2 (08:33→20:06)
[2017-04-09] MEDS: lactobacillus rhamnosus 10,000 MMU CELLS/CAPSULE PO SCH ×2 (08:33→17:47)
[2017-04-09 11:00] VITALS: BP 104/43
[2017-04-09] MEDS ORDERED: levoFLOXACIN 500mg tablet PO SCH (11:00)
[2017-04-09 15:00] VITALS: BP 133/66
[2017-04-09 19:00] VITALS: BP 134/68
[2017-04-09] MEDS: LORazepam 1 MG tablet PO PRN (20:05)
[2017-04-09] MEDS ORDERED: ZAR2.5T PO (20:27)
[2017-04-09] MEDS ORDERED: LEVO500T89 PO (20:42)
[2017-04-09] MEDS ORDERED: LEVO500T2 PO (20:49)
[2017-04-09] MEDS ORDERED: FURO40TA4 PO (20:52)
== END 2017-04-09 21:43 | disposition home or self-care (01) | DRG 291 ==
LOC: ER 12:52 → ED HOLD 15:12 → EDBEDREQ 15:38 → PCU 3S 16:54
PROVIDERS: ADMIT Family Medicine; ATTEND Internal Medicine Cardiovascular Disease
PROC: 0W993ZX Drainage of Right Pleural Cavity, Percutaneous Approach, Diagnostic (ICD-10-PCS; principal; 2017-04-07)
PROC: 0W993ZZ Drainage of Right Pleural Cavity, Percutaneous Approach (ICD-10-PCS; 2017-04-07)
DX: I13.0 Hypertensive heart and chronic kidney disease with heart failure and stage 1 through stage 4 chronic kidney disease, or unspecified chronic kidney disease (principal); J96.01 Acute respiratory failure with hypoxia; N17.9 Acute kidney failure, unspecified; J18.1 Lobar pneumonia, unspecified organism; J90 Pleural effusion, not elsewhere classified; I48.0 Paroxysmal atrial fibrillation; I73.9 Peripheral vascular disease, unspecified; I50.43 Acute on chronic combined systolic (congestive) and diastolic (congestive) heart failure; J44.1 Chronic obstructive pulmonary disease with (acute) exacerbation; J44.0 Chronic obstructive pulmonary disease with (acute) lower respiratory infection; N18.9 Chronic kidney disease, unspecified; I25.5 Ischemic cardiomyopathy; I25.10 Atherosclerotic heart disease of native coronary artery without angina pectoris; I25.2 Old myocardial infarction; Z95.1 Presence of aortocoronary bypass graft; Z88.5 Allergy status to narcotic agent; Z88.8 Allergy status to other drugs, medicaments and biological substances; Z91.030 Bee allergy status; Z79.899 Other long term (current) drug therapy; Z79.82 Long term (current) use of aspirin; Z80.9 Family history of malignant neoplasm, unspecified
CPT/HCPCS: 32555; 36415; 71045; 71250; 80053; 80305; 81003; 82945; 83605; 83615; 83735; 83880; 84100; 84132; 84145; 84157; 84484; 85025; 85610; 85730; 87040; 87070; 87075; 88108; 88305; 88341; 88342; 93005; 93306; 94640; 94760; 99285; A6257; J1170; J1940; J1956; J2930; J7030

== ENCOUNTER 2017-04-16 10:01 | Inpatient (IN) | payer MEDICARE, MEDICAID ==
[2017-04-16] VITALS (8 sets, daily range): BP systolic 88–102; BP diastolic 52–63
[~2017-04-16] VITALS: Ht 185.4 cm; Wt 93.5 kg
[~2017-04-16 10:01] MED LIST changes: -FURO-149 PO; +FURO40TA4 PO; +LEVO500T2 PO; +LEVO500T89 PO; +SULF-14 PO; -SULF-18; -SULF1TAB48 PO; +ZAR2.5T PO
[2017-04-16] MEDS ORDERED: normal saline 1000ml 1,000 ML IV ONE (10:36)
[2017-04-16] MEDS ORDERED: normal saline 1000ML IV soln IVB ONE (10:40)
[2017-04-16 11:32] LABS: BASOPHILS # (AUTO) 0.2 X10'3 (0-0.2); BASOPHILS % (AUTO) 1.4 % (0-1); EOSINOPHILS # (AUTO) 0.1 X10'3 (0-0.9); EOSINOPHILS % (AUTO) 0.9 % (0-6); HEMOGLOBIN 13.1 g/dl (14.0-17.9); LYMPHOCYTES # (AUTO) 1.1 X10'3 (1.1-4.8); LYMPHOCYTES % (AUTO) 9.2 % (21-51); MEAN CORPUSCULAR HEMOGLOBIN 27.4 PG (27.0-31.0); MEAN CORPUSCULAR HGB CONC 32.7 % (33.0-36.5); MEAN CORPUSCULAR VOLUME 83.9 FL (78-98); MEAN PLATELET VOLUME 9.1 FL (7.4-10.4); MONOCYTES # (AUTO) 1.1 X10'3 (0-0.9); MONOCYTES % (AUTO) 9.8 % (2-12); NEUTROPHILS # (AUTO) 8.9 X10'3 (1.8-7.7); NEUTROPHILS % (AUTO) 78.7 % (42-75); PLATELET COUNT 305 X10'3 (140-440); RED BLOOD COUNT 4.77 X10'6 (4.70-6.10); RED CELL DISTRIBUTION WIDTH 15.9 % (11.5-14.5); WHITE BLOOD COUNT 11.4 X10'3 (4.5-11.0)
[2017-04-16 11:34] LABS: INR 1.2 INR; PARTIAL THROMBOPLASTIN TIME 31 SECONDS (22-32); PROTHROMBIN TIME 11.9 SECONDS (9.0-12.0)
[2017-04-16 11:51] LABS: ALANINE AMINOTRANSFERASE 21 U/L (12-78); ALBUMIN 3.2 G/DL (3.4-5.0); ALBUMIN/GLOBULIN RATIO 0.8 (1.1-1.5); ALKALINE PHOSPHATASE 83 IU/L (46-116); ANION GAP 15 (8-16); ASPARTATE AMINO TRANSFERASE 13 U/L (10-37); BLOOD UREA NITROGEN 55 MG/DL (7-18); BUN/CREATININE RATIO 13.9 (5.4-32.0); CALCIUM 8.9 MG/DL (8.5-10.1); CHLORIDE 92 MMOL/L (99-107); CREATININE 3.95 MG/DL (0.60-1.10); GLUCOSE 110 MG/DL (70-104); MAGNESIUM 2.1 MG/DL (1.5-2.4); PHOSPHORUS 3.8 MG/DL (2.3-4.5); POTASSIUM 3.1 MMOL/L (3.5-5.1); SODIUM 132 MMOL/L (135-145); TOTAL CARBON DIOXIDE 25.3 MMOL/L (24-32); TOTAL PROTEIN 7.2 G/DL (6.4-8.2); eGFR 15 ML/MIN
[2017-04-16] MEDS ORDERED: acetaminophen 325mg tablet PO PRN (14:30)
[2017-04-16] MEDS ORDERED: bisacodyl 10mg suppository rectal RC PRN (14:30)
[2017-04-16] MEDS ORDERED: metoclopramide 5 mg/ml inj IV PRN (14:30)
[2017-04-16] MEDS: DOBUTamine-DoBUTrex 500mg/D5W 250 ML IV SCH ×3 (14:45→19:41)
[2017-04-16] MEDS ORDERED: FURO40TA4 PO (15:40)
[2017-04-16] MEDS: heparin, porcine 5000 units/ml vial SQ SCH ×2 (16:38→23:56)
[2017-04-16] MEDS: normal saline 500ml IV soln 500 ML IV ONE ×2 (18:00→19:40)
[2017-04-16] MEDS: temazepam 15mg capsule PO PRN (23:57)
[2017-04-17] VITALS (15 sets, daily range): BP systolic 78–142; BP diastolic 39–70
[2017-04-17] MEDS: acetaminophen 325mg tablet PO PRN ×4 (01:22→21:08)
[2017-04-17 06:02] LABS: BASOPHILS # (AUTO) 0.1 X10'3 (0-0.2); BASOPHILS % (AUTO) 0.5 % (0-1); EOSINOPHILS # (AUTO) 0.2 X10'3 (0-0.9); EOSINOPHILS % (AUTO) 1.7 % (0-6); HEMATOCRIT 36.1 % (42.0-52.0); HEMOGLOBIN 11.9 g/dl (14.0-17.9); LYMPHOCYTES % (AUTO) 8.3 % (21-51); MEAN CORPUSCULAR HEMOGLOBIN 27.8 PG (27.0-31.0); MEAN CORPUSCULAR HGB CONC 32.9 % (33.0-36.5); MEAN CORPUSCULAR VOLUME 84.5 FL (78-98); MEAN PLATELET VOLUME 8.8 FL (7.4-10.4); MONOCYTES # (AUTO) 1.5 X10'3 (0-0.9); MONOCYTES % (AUTO) 12.5 % (2-12); NEUTROPHILS # (AUTO) 9.1 X10'3 (1.8-7.7); PLATELET COUNT 254 X10'3 (140-440); RED BLOOD COUNT 4.27 X10'6 (4.70-6.10); RED CELL DISTRIBUTION WIDTH 17.1 % (11.5-14.5); WHITE BLOOD COUNT 11.9 X10'3 (4.5-11.0)
[2017-04-17 06:24] LABS: ALANINE AMINOTRANSFERASE 15 U/L (12-78); ALBUMIN/GLOBULIN RATIO 0.8 (1.1-1.5); ALKALINE PHOSPHATASE 75 IU/L (46-116); ANION GAP 13 (8-16); ASPARTATE AMINO TRANSFERASE 16 U/L (10-37); BILIRUBIN,TOTAL 0.8 MG/DL (0.1-1.0); BLOOD UREA NITROGEN 53 MG/DL (7-18); BUN/CREATININE RATIO 15.2 (5.4-32.0); CALCIUM 8.7 MG/DL (8.5-10.1); CHLORIDE 99 MMOL/L (99-107); CREATININE 3.49 MG/DL (0.60-1.10); GLUCOSE 102 MG/DL (70-104); MAGNESIUM 2.1 MG/DL (1.5-2.4); PHOSPHORUS 4.7 MG/DL (2.3-4.5); SODIUM 137 MMOL/L (135-145); TOTAL CARBON DIOXIDE 25.5 MMOL/L (24-32); TOTAL PROTEIN 6.7 G/DL (6.4-8.2); eGFR 18 ML/MIN
[2017-04-17 06:39] LABS: POTASSIUM 2.9 MMOL/L (3.5-5.1)
[2017-04-17] MEDS ORDERED: potassium Cl 20 mEq SR tablet PO PRN (06:55)
[2017-04-17] MEDS ORDERED: potassium Cl 40MEQ/NS 500ml 500 ML IV PRN ×2 (06:55)
[2017-04-17] MEDS ORDERED: magnesium Cl slow-release 64mg tablet PO PRN (06:55)
[2017-04-17] MEDS ORDERED: magnesium 2GM in 50ml NS 50 ML IV PRN (06:55)
[2017-04-17] MEDS: heparin, porcine 5000 units/ml vial SQ SCH (07:59)
[2017-04-17] MEDS: DOBUTamine-DoBUTrex 500mg/D5W 250 ML IV SCH (08:00)
[2017-04-17] MEDS: normal saline 1000ml 1,000 ML IV SCH ×2 (10:21→21:02)
[2017-04-17] MEDS ORDERED: amiodarone 200mg tablet PO SCH (11:15)
[2017-04-17] MEDS ORDERED: LORazepam 1 MG tablet PO PRN (11:15)
[2017-04-17] MEDS ORDERED: nitroGLYCERIN 0.4mg SUBLingual tab SL PRN (11:15)
[2017-04-17 12:28] LABS: ALBUMIN 3.1 G/DL (3.4-5.0); ANION GAP 13 (8-16); BLOOD UREA NITROGEN 53 MG/DL (7-18); BUN/CREATININE RATIO 16.5 (5.4-32.0); CALCIUM 8.9 MG/DL (8.5-10.1); CHLORIDE 97 MMOL/L (99-107); CREATININE 3.22 MG/DL (0.60-1.10); GLUCOSE 104 MG/DL (70-104); POTASSIUM 3.3 MMOL/L (3.5-5.1); SODIUM 136 MMOL/L (135-145); TOTAL CARBON DIOXIDE 25.9 MMOL/L (24-32); eGFR 19 ML/MIN
[2017-04-17] MEDS ORDERED: oxyCODONE/APAP 10/325mg tablet PO SCH (13:00)
[2017-04-17 13:02] LABS: INR 1.1 INR; PROTHROMBIN TIME 11.5 SECONDS (9.0-12.0)
[2017-04-17] MEDS: potassium Cl 20 mEq SR tablet PO PRN (14:04)
[2017-04-17] MEDS ORDERED: normal saline 500ml IV soln 1,000 ML IV SCH (16:20)
[2017-04-17] MEDS ORDERED: oxyCODONE/APAP 10/325mg tablet PO PRN (20:00)
[2017-04-17] MEDS: atorvastatin 20mg tablet PO SCH (20:51)
[2017-04-17] MEDS: pantoprazole 40mg Tablet.DR PO SCH (20:51)
[2017-04-17] MEDS: apixaban 5mg tablet PO SCH (20:51)
[2017-04-17] MEDS: temazepam 15mg capsule PO PRN (23:06)
[2017-04-18] VITALS (13 sets, daily range): BP systolic 84–149; BP diastolic 38–88
[2017-04-18] MEDS: acetaminophen 325mg tablet PO PRN ×3 (04:35→21:12)
[2017-04-18] MEDS: DOBUTamine-DoBUTrex 500mg/D5W 250 ML IV SCH ×2 (04:37→22:26)
[2017-04-18 06:37] LABS: BASOPHILS # (AUTO) 0.1 X10'3 (0-0.2); BASOPHILS % (AUTO) 0.7 % (0-1); EOSINOPHILS # (AUTO) 0.2 X10'3 (0-0.9); HEMATOCRIT 32.3 % (42.0-52.0); HEMOGLOBIN 10.6 g/dl (14.0-17.9); LYMPHOCYTES # (AUTO) 0.7 X10'3 (1.1-4.8); LYMPHOCYTES % (AUTO) 6.7 % (21-51); MEAN CORPUSCULAR HEMOGLOBIN 27.8 PG (27.0-31.0); MEAN CORPUSCULAR HGB CONC 32.8 % (33.0-36.5); MEAN CORPUSCULAR VOLUME 84.8 FL (78-98); MEAN PLATELET VOLUME 8.5 FL (7.4-10.4); MONOCYTES # (AUTO) 1.1 X10'3 (0-0.9); MONOCYTES % (AUTO) 11.2 % (2-12); NEUTROPHILS # (AUTO) 8.2 X10'3 (1.8-7.7); NEUTROPHILS % (AUTO) 79.4 % (42-75); PLATELET COUNT 212 X10'3 (140-440); RED BLOOD COUNT 3.81 X10'6 (4.70-6.10); RED CELL DISTRIBUTION WIDTH 17.1 % (11.5-14.5); WHITE BLOOD COUNT 10.3 X10'3 (4.5-11.0)
[2017-04-18 06:52] LABS: INR 1.1 INR
[2017-04-18 07:00] LABS: ALANINE AMINOTRANSFERASE 20 U/L (12-78); ALBUMIN 2.7 G/DL (3.4-5.0); ALBUMIN/GLOBULIN RATIO 0.8 (1.1-1.5); ALKALINE PHOSPHATASE 65 IU/L (46-116); ANION GAP 10 (8-16); ASPARTATE AMINO TRANSFERASE 24 U/L (10-37); BILIRUBIN,TOTAL 0.7 MG/DL (0.1-1.0); BLOOD UREA NITROGEN 40 MG/DL (7-18); BUN/CREATININE RATIO 17.4 (5.4-32.0); CHLORIDE 101 MMOL/L (99-107); GLUCOSE 100 MG/DL (70-104); MAGNESIUM 2.3 MG/DL (1.5-2.4); PHOSPHORUS 3.1 MG/DL (2.3-4.5); POTASSIUM 3.1 MMOL/L (3.5-5.1); SODIUM 136 MMOL/L (135-145); TOTAL CARBON DIOXIDE 25.3 MMOL/L (24-32); eGFR 28 ML/MIN
[2017-04-18] MEDS ORDERED: aspirin 81mg tablet.DR PO SCH (08:00)
[2017-04-18] MEDS: apixaban 5mg tablet PO SCH ×2 (09:26→21:11)
[2017-04-18] MEDS: multivitamins, therapeutics tablet PO SCH (09:27)
[2017-04-18] MEDS: pantoprazole 40mg Tablet.DR PO SCH ×2 (09:31→21:12)
[2017-04-18] MEDS: aspirin 81mg tablet.DR PO SCH (09:31)
[2017-04-18] MEDS: potassium Cl 20 mEq SR tablet PO PRN ×3 (09:32→21:12)
[2017-04-18] MEDS: ferrous sulfate 325mg tablet PO SCH (09:32)
[2017-04-18] MEDS: normal saline 1000ml 1,000 ML IV SCH ×3 (09:38→21:13)
[2017-04-18] MEDS: metoclopramide 10mg tablet PO PRN ×2 (12:49→22:31)
[2017-04-18] MEDS: LORazepam 1 MG tablet PO PRN (13:41)
[2017-04-18] MEDS: atorvastatin 20mg tablet PO SCH (21:12)
[2017-04-18] MEDS: temazepam 15mg capsule PO PRN (21:25)
[2017-04-19] VITALS (14 sets, daily range): BP systolic 90–145; BP diastolic 34–73
[2017-04-19 00:53] LABS: ALANINE AMINOTRANSFERASE 23 U/L (12-78); ALBUMIN 2.6 G/DL (3.4-5.0); ALBUMIN/GLOBULIN RATIO 0.8 (1.1-1.5); ALKALINE PHOSPHATASE 63 IU/L (46-116); ANION GAP 10 (8-16); ASPARTATE AMINO TRANSFERASE 27 U/L (10-37); BILIRUBIN,TOTAL 0.6 MG/DL (0.1-1.0); BLOOD UREA NITROGEN 29 MG/DL (7-18); BUN/CREATININE RATIO 14.9 (5.4-32.0); CHLORIDE 101 MMOL/L (99-107); CREATININE 1.95 MG/DL (0.60-1.10); GLUCOSE 91 MG/DL (70-104); POTASSIUM 3.6 MMOL/L (3.5-5.1); SODIUM 136 MMOL/L (135-145); TOTAL CARBON DIOXIDE 24.8 MMOL/L (24-32); TROPONIN I 0.09 NG/ML (0.0-0.05); eGFR 34 ML/MIN
[2017-04-19 06:17] LABS: BASOPHILS # (AUTO) 0.1 X10'3 (0-0.2); BASOPHILS % (AUTO) 0.9 % (0-1); EOSINOPHILS # (AUTO) 0.5 X10'3 (0-0.9); EOSINOPHILS % (AUTO) 5.9 % (0-6); HEMATOCRIT 30.8 % (42.0-52.0); HEMOGLOBIN 10.3 g/dl (14.0-17.9); LYMPHOCYTES # (AUTO) 1.2 X10'3 (1.1-4.8); LYMPHOCYTES % (AUTO) 14.1 % (21-51); MEAN CORPUSCULAR HGB CONC 33.5 % (33.0-36.5); MEAN CORPUSCULAR VOLUME 83.7 FL (78-98); MEAN PLATELET VOLUME 8.8 FL (7.4-10.4); MONOCYTES % (AUTO) 11.5 % (2-12); NEUTROPHILS # (AUTO) 5.9 X10'3 (1.8-7.7); NEUTROPHILS % (AUTO) 67.6 % (42-75); PLATELET COUNT 201 X10'3 (140-440); RED BLOOD COUNT 3.68 X10'6 (4.70-6.10); RED CELL DISTRIBUTION WIDTH 16.8 % (11.5-14.5); WHITE BLOOD COUNT 8.7 X10'3 (4.5-11.0)
[2017-04-19 06:25] LABS: INR 1.1 INR
[2017-04-19] MEDS: metoclopramide 10mg tablet PO PRN ×2 (06:33→16:33)
[2017-04-19 06:34] LABS: ALANINE AMINOTRANSFERASE 17 U/L (12-78); ALBUMIN 2.6 G/DL (3.4-5.0); ALBUMIN/GLOBULIN RATIO 0.7 (1.1-1.5); ALKALINE PHOSPHATASE 67 IU/L (46-116); ANION GAP 10 (8-16); ASPARTATE AMINO TRANSFERASE 24 U/L (10-37); BILIRUBIN,TOTAL 0.6 MG/DL (0.1-1.0); BLOOD UREA NITROGEN 26 MG/DL (7-18); BUN/CREATININE RATIO 13.8 (5.4-32.0); CALCIUM 8.3 MG/DL (8.5-10.1); CHLORIDE 103 MMOL/L (99-107); CREATININE 1.89 MG/DL (0.60-1.10); GLUCOSE 95 MG/DL (70-104); MAGNESIUM 2.1 MG/DL (1.5-2.4); PHOSPHORUS 2.5 MG/DL (2.3-4.5); POTASSIUM 3.2 MMOL/L (3.5-5.1); SODIUM 138 MMOL/L (135-145); TOTAL CARBON DIOXIDE 25.3 MMOL/L (24-32); TOTAL PROTEIN 6.1 G/DL (6.4-8.2); eGFR 36 ML/MIN
[2017-04-19] MEDS: potassium Cl 20 mEq SR tablet PO PRN ×3 (08:44→23:16)
[2017-04-19] MEDS: ferrous sulfate 325mg tablet PO SCH (08:44)
[2017-04-19] MEDS: pantoprazole 40mg Tablet.DR PO SCH ×2 (08:44→19:23)
[2017-04-19] MEDS: acetaminophen 325mg tablet PO PRN ×2 (08:44→20:57)
[2017-04-19] MEDS: aspirin 81mg tablet.DR PO SCH (08:45)
[2017-04-19] MEDS: multivitamins, therapeutics tablet PO SCH (08:45)
[2017-04-19] MEDS: apixaban 5mg tablet PO SCH ×2 (08:45→19:23)
[2017-04-19] MEDS: LORazepam 1 MG tablet PO PRN (10:14)
[2017-04-19] MEDS: normal saline 1000ml 1,000 ML IV SCH (12:10)
[2017-04-19] MEDS: amiodarone 200mg tablet PO SCH (16:32)
[2017-04-19] MEDS: DOBUTamine-DoBUTrex 500mg/D5W 250 ML IV SCH (17:17)
[2017-04-19] MEDS: atorvastatin 20mg tablet PO SCH (20:56)
[2017-04-19] MEDS: furosemide 40mg tablet PO SCH (20:57)
[2017-04-19] MEDS: temazepam 15mg capsule PO PRN (23:16)
[2017-04-20] VITALS (8 sets, daily range): BP systolic 102–154; BP diastolic 46–82
[2017-04-20 07:10] LABS: BASOPHILS # (AUTO) 0.1 X10'3 (0-0.2); EOSINOPHILS # (AUTO) 0.5 X10'3 (0-0.9); EOSINOPHILS % (AUTO) 6.8 % (0-6); HEMATOCRIT 32.2 % (42.0-52.0); HEMOGLOBIN 10.8 g/dl (14.0-17.9); LYMPHOCYTES # (AUTO) 1.1 X10'3 (1.1-4.8); LYMPHOCYTES % (AUTO) 13.7 % (21-51); MEAN CORPUSCULAR HEMOGLOBIN 28.1 PG (27.0-31.0); MEAN CORPUSCULAR HGB CONC 33.4 % (33.0-36.5); MEAN CORPUSCULAR VOLUME 84.2 FL (78-98); MEAN PLATELET VOLUME 8.9 FL (7.4-10.4); MONOCYTES # (AUTO) 1.2 X10'3 (0-0.9); MONOCYTES % (AUTO) 14.6 % (2-12); NEUTROPHILS % (AUTO) 63.9 % (42-75); PLATELET COUNT 211 X10'3 (140-440); RED BLOOD COUNT 3.82 X10'6 (4.70-6.10); RED CELL DISTRIBUTION WIDTH 17.3 % (11.5-14.5); WHITE BLOOD COUNT 7.9 X10'3 (4.5-11.0)
[2017-04-20 07:22] LABS: PROTHROMBIN TIME 10.7 SECONDS (9.0-12.0)
[2017-04-20] MEDS: aspirin 81mg tablet.DR PO SCH (07:34)
[2017-04-20] MEDS: multivitamins, therapeutics tablet PO SCH (07:34)
[2017-04-20] MEDS: ferrous sulfate 325mg tablet PO SCH (07:34)
[2017-04-20] MEDS: apixaban 5mg tablet PO SCH (07:35)
[2017-04-20] MEDS: furosemide 40mg tablet PO SCH ×2 (07:35→12:49)
[2017-04-20] MEDS: pantoprazole 40mg Tablet.DR PO SCH (07:35)
[2017-04-20] MEDS: amiodarone 200mg tablet PO SCH (07:35)
[2017-04-20 07:39] LABS: ALANINE AMINOTRANSFERASE 23 U/L (12-78); ALBUMIN 2.9 G/DL (3.4-5.0); ALBUMIN/GLOBULIN RATIO 0.8 (1.1-1.5); ALKALINE PHOSPHATASE 68 IU/L (46-116); ANION GAP 11 (8-16); ASPARTATE AMINO TRANSFERASE 22 U/L (10-37); BILIRUBIN,TOTAL 0.5 MG/DL (0.1-1.0); BLOOD UREA NITROGEN 23 MG/DL (7-18); BUN/CREATININE RATIO 13.8 (5.4-32.0); CALCIUM 8.5 MG/DL (8.5-10.1); CHLORIDE 99 MMOL/L (99-107); CREATININE 1.67 MG/DL (0.60-1.10); GLUCOSE 95 MG/DL (70-104); MAGNESIUM 1.9 MG/DL (1.5-2.4); PHOSPHORUS 2.8 MG/DL (2.3-4.5); POTASSIUM 3.3 MMOL/L (3.5-5.1); SODIUM 138 MMOL/L (135-145); TOTAL CARBON DIOXIDE 27.8 MMOL/L (24-32); TOTAL PROTEIN 6.6 G/DL (6.4-8.2); eGFR 41 ML/MIN
[2017-04-20] MEDS ORDERED: amiodarone 200mg tablet PO SCH (08:00)
[2017-04-20] MEDS: acetaminophen 325mg tablet PO PRN (09:50)
[2017-04-20] MEDS ORDERED: potassium Cl 20 mEq SR tablet PO STA (10:35)
[2017-04-20] MEDS ORDERED: FURO40TA4 PO (11:22)
== END 2017-04-20 17:20 | disposition home or self-care (01) | DRG 683 ==
LOC: ER 10:01 → ED HOLD 14:30 → PCU 3S 20:00
PROVIDERS: ADMIT Internal Medicine; ATTEND Internal Medicine
DX: N17.9 Acute kidney failure, unspecified (principal); E87.2 Acidosis; I13.0 Hypertensive heart and chronic kidney disease with heart failure and stage 1 through stage 4 chronic kidney disease, or unspecified chronic kidney disease; I48.0 Paroxysmal atrial fibrillation; I50.22 Chronic systolic (congestive) heart failure; A08.4 Viral intestinal infection, unspecified; E87.6 Hypokalemia; E86.0 Dehydration; I25.10 Atherosclerotic heart disease of native coronary artery without angina pectoris; W18.39XA Other fall on same level, initial encounter; S00.81XA Abrasion of other part of head, initial encounter; I95.1 Orthostatic hypotension; J44.9 Chronic obstructive pulmonary disease, unspecified; I73.9 Peripheral vascular disease, unspecified; N18.9 Chronic kidney disease, unspecified; I25.2 Old myocardial infarction; Z95.1 Presence of aortocoronary bypass graft; Z88.5 Allergy status to narcotic agent; Z88.8 Allergy status to other drugs, medicaments and biological substances; Z91.030 Bee allergy status; Z79.899 Other long term (current) drug therapy; Z79.82 Long term (current) use of aspirin; Z87.891 Personal history of nicotine dependence; Z82.49 Family history of ischemic heart disease and other diseases of the circulatory system; Y93.89 Activity, other specified; Y92.89 Other specified places as the place of occurrence of the external cause; Y99.8 Other external cause status
CPT/HCPCS: 36415; 70450; 71045; 73502; 76700; 80048; 80053; 82570; 83605; 83735; 83880; 83935; 84100; 84300; 84484; 85025; 85610; 85730; 86885; 86900; 86901; 87040; 87070; 93005; 96360; 96361; 99285; J1250; J1644; J7030; J8597

== ENCOUNTER 2017-05-29 12:51 | Outpatient (CLI) | payer MEDICARE, MEDICAID ==
[~2017-05-29 12:51] MED LIST changes: -LEVO500T2 PO; -LEVO500T89 PO; -PER10325T PO; -ZAR2.5T PO
[2017-05-29] MEDS ORDERED: LIDOcaine 1% 30ml preserv. free vial SQ STA (14:09)
== END 2017-05-29 23:59 | disposition home or self-care (01) ==
LOC: RAD 12:51
PROVIDERS: ATTEND Internal Medicine Cardiovascular Disease
DX: R06.02 Shortness of breath (principal)
CPT/HCPCS: 71046

== ENCOUNTER 2017-05-30 06:28 | Day surgery (SDC) | payer MEDICARE, MEDICAID ==
[~2017-05-30] VITALS: Ht 188 cm; Wt 101.0 kg
[~2017-05-30 06:28] MED LIST changes: +LIDOcaine 1% 30ml preserv. free vial SQ STA
[2017-05-30 06:54] VITALS: BP 125/76
[2017-05-30 08:55] VITALS: BP 125/76
[2017-05-30 09:00] VITALS: BP 113/71
[2017-05-30 09:05] VITALS: BP 115/70
[2017-05-30 09:10] VITALS: BP 114/72
[2017-05-30 09:15] VITALS: BP 116/78
== END 2017-05-30 09:30 | disposition home or self-care (01) ==
LOC: SSTAY O 06:28
PROVIDERS: ATTEND Radiology Diagnostic Radiology
DX: J90 Pleural effusion, not elsewhere classified (principal); I11.0 Hypertensive heart disease with heart failure; I50.9 Heart failure, unspecified; I25.10 Atherosclerotic heart disease of native coronary artery without angina pectoris; I48.91 Unspecified atrial fibrillation; J44.9 Chronic obstructive pulmonary disease, unspecified; M19.90 Unspecified osteoarthritis, unspecified site; M19.012 Primary osteoarthritis, left shoulder; F32.9 Major depressive disorder, single episode, unspecified; F41.9 Anxiety disorder, unspecified; B15.9 Hepatitis A without hepatic coma; Z72.89 Other problems related to lifestyle; Z79.01 Long term (current) use of anticoagulants; Z79.82 Long term (current) use of aspirin; Z87.891 Personal history of nicotine dependence; Z88.1 Allergy status to other antibiotic agents; Z95.1 Presence of aortocoronary bypass graft; Z88.3 Allergy status to other anti-infective agents; Z91.030 Bee allergy status; Z86.74 Personal history of sudden cardiac arrest; Z95.5 Presence of coronary angioplasty implant and graft; Z90.49 Acquired absence of other specified parts of digestive tract; Z79.899 Other long term (current) drug therapy; Z98.890 Other specified postprocedural states
CPT/HCPCS: 32555; 71045; J3490; 49083

== ENCOUNTER 2017-06-02 11:33 | Inpatient (IN) | payer MEDICARE, MEDICAID ==
[~2017-06-02] VITALS: Ht 185.4 cm; Wt 99.1 kg
[~2017-06-02 11:33] MED LIST changes: -LIDOcaine 1% 30ml preserv. free vial SQ STA; -SULF-14 PO
[2017-06-02 12:23] LABS: BASOPHILS % (AUTO) 0.4 % (0-1); EOSINOPHILS # (AUTO) 0.2 X10'3 (0-0.9); EOSINOPHILS % (AUTO) 2.1 % (0-6); HEMATOCRIT 28.1 % (42.0-52.0); HEMOGLOBIN 8.9 g/dl (14.0-17.9); LYMPHOCYTES # (AUTO) 0.7 X10'3 (1.1-4.8); LYMPHOCYTES % (AUTO) 9.7 % (21-51); MEAN CORPUSCULAR HEMOGLOBIN 25.1 PG (27.0-31.0); MEAN CORPUSCULAR HGB CONC 31.5 % (33.0-36.5); MEAN CORPUSCULAR VOLUME 79.8 FL (78-98); MEAN PLATELET VOLUME 9.5 FL (7.4-10.4); MONOCYTES # (AUTO) 1.2 X10'3 (0-0.9); MONOCYTES % (AUTO) 16.2 % (2-12); NEUTROPHILS # (AUTO) 5.4 X10'3 (1.8-7.7); NEUTROPHILS % (AUTO) 71.6 % (42-75); PLATELET COUNT 231 X10'3 (140-440); RED BLOOD COUNT 3.53 X10'6 (4.70-6.10); WHITE BLOOD COUNT 7.5 X10'3 (4.5-11.0)
[2017-06-02 12:33] LABS: INR 1.2 INR; PARTIAL THROMBOPLASTIN TIME 29 SECONDS (22-32); PROTHROMBIN TIME 12.3 SECONDS (9.0-12.0)
[2017-06-02 12:47] LABS: ANION GAP 8 (8-16); BILIRUBIN,TOTAL 0.9 MG/DL (0.1-1.0); BLOOD UREA NITROGEN 35 MG/DL (7-18); BUN/CREATININE RATIO 18.3 (5.4-32.0); CALCIUM 8.5 MG/DL (8.5-10.1); CHLORIDE 101 MMOL/L (99-107); CREATININE 1.91 MG/DL (0.60-1.10); GLUCOSE 92 MG/DL (70-104); POTASSIUM 3.8 MMOL/L (3.5-5.1); SODIUM 139 MMOL/L (135-145); TOTAL CARBON DIOXIDE 29.8 MMOL/L (24-32); TOTAL PROTEIN 6.9 G/DL (6.4-8.2); eGFR 35 ML/MIN
[2017-06-02 12:48] LABS: ALANINE AMINOTRANSFERASE 80 U/L (12-78); ALBUMIN/GLOBULIN RATIO 0.8 (1.1-1.5); ALKALINE PHOSPHATASE 89 IU/L (46-116); ASPARTATE AMINO TRANSFERASE 32 U/L (10-37)
[2017-06-02 12:59] LABS: ANISOCYTOSIS 2+; ELLIPTOCYTES FEW; HYPOCHROMASIA 1+; MICROCYTOSIS 1+; PLATELET ESTIMATE NORMAL; POLYCHROMASIA 1+; SCHISTOCYTES FEW; STOMATOCYTES 1+; TARGET CELLS FEW
[2017-06-02 13:00] LABS: LARGE PLATELETS FEW
[2017-06-02] MEDS ORDERED: furosemide 10 MG/1 ML 10ml inj IV ONE (13:25)
[2017-06-02] MEDS ORDERED: potassium chloride 8mEq ER tablet PO ONE (13:25)
[2017-06-02] MEDS ORDERED: metoclopramide 5 mg/ml inj IV ONE (14:30)
[2017-06-02] MEDS ORDERED: pantoprazole 40 MG vial IV ONE (14:30)
[2017-06-02] MEDS ORDERED: oxyCODONE/APAP 5-325mg tablet PO ONE (14:45)
[2017-06-02] MEDS ORDERED: potassium Cl 40MEQ/NS 500ml 500 ML IV PRN ×2 (15:45)
[2017-06-02] MEDS ORDERED: ondansetron/PF 4mg/2ml inj IV PRN (15:45)
[2017-06-02] MEDS ORDERED: potassium Cl 20 mEq SR tablet PO PRN ×2 (15:45)
[2017-06-02] MEDS ORDERED: acetaminophen 325mg tablet PO PRN ×2 (15:45)
[2017-06-02] MEDS ORDERED: magnesium hydroxide 30ml (MOM) UD suspension PO PRN (15:45)
[2017-06-02] MEDS ORDERED: mag hydrox/Alum hydrox/simeth 30ml oral suspension PO PRN (15:45)
[2017-06-02] MEDS: furosemide 10 MG/1 ML 10ml inj IV SCH (16:08)
[2017-06-02 17:19] VITALS: BP 139/76
[2017-06-02 18:00] VITALS: BP 116/59
[2017-06-02] MEDS: sacubitril/valsartan 24mg-26mg tablet PO SCH (20:00)
[2017-06-02] MEDS: pantoprazole 40mg Tablet.DR PO SCH (20:33)
[2017-06-02] MEDS: LORazepam 1 MG tablet PO PRN (20:38)
[2017-06-02] MEDS: polyethylene glycol 3350 17gm powd pack PO SCH (20:39)
[2017-06-02] MEDS: oxyCODONE/APAP 10/325mg tablet PO PRN (21:57)
[2017-06-02 22:00] VITALS: BP 129/65
[2017-06-03] VITALS (8 sets, daily range): BP systolic 90–127; BP diastolic 40–64
[2017-06-03] MEDS: temazepam 15mg capsule PO PRN ×2 (00:19→23:16)
[2017-06-03] MEDS: furosemide 10 MG/1 ML 10ml inj IV SCH ×4 (00:22→23:16)
[2017-06-03] MEDS: oxyCODONE/APAP 10/325mg tablet PO PRN ×2 (03:46→08:26)
[2017-06-03 05:23] LABS: BASOPHILS # (AUTO) 0.1 X10'3 (0-0.2); BASOPHILS % (AUTO) 1.1 % (0-1); EOSINOPHILS # (AUTO) 0.2 X10'3 (0-0.9); EOSINOPHILS % (AUTO) 3.7 % (0-6); HEMOGLOBIN 8.1 g/dl (14.0-17.9); LYMPHOCYTES # (AUTO) 1.4 X10'3 (1.1-4.8); LYMPHOCYTES % (AUTO) 22.1 % (21-51); MEAN CORPUSCULAR HEMOGLOBIN 24.9 PG (27.0-31.0); MEAN CORPUSCULAR HGB CONC 31.1 % (33.0-36.5); MEAN CORPUSCULAR VOLUME 80.1 FL (78-98); MEAN PLATELET VOLUME 9.7 FL (7.4-10.4); MONOCYTES # (AUTO) 1.1 X10'3 (0-0.9); MONOCYTES % (AUTO) 18.4 % (2-12); NEUTROPHILS # (AUTO) 3.3 X10'3 (1.8-7.7); NEUTROPHILS % (AUTO) 54.7 % (42-75); PLATELET COUNT 218 X10'3 (140-440); RED BLOOD COUNT 3.24 X10'6 (4.70-6.10); RED CELL DISTRIBUTION WIDTH 17.4 % (11.5-14.5); WHITE BLOOD COUNT 6.1 X10'3 (4.5-11.0)
[2017-06-03 05:37] LABS: ALBUMIN 2.7 G/DL (3.4-5.0); ANION GAP 8 (8-16); BLOOD UREA NITROGEN 36 MG/DL (7-18); BUN/CREATININE RATIO 17.4 (5.4-32.0); CALCIUM 8.4 MG/DL (8.5-10.1); CHLORIDE 102 MMOL/L (99-107); CREATININE 2.07 MG/DL (0.60-1.10); GLUCOSE 98 MG/DL (70-104); SODIUM 140 MMOL/L (135-145); TOTAL CARBON DIOXIDE 30.2 MMOL/L (24-32); eGFR 32 ML/MIN
[2017-06-03] MEDS: aspirin 81mg tablet.DR PO SCH (08:00)
[2017-06-03] MEDS: K and/or MAG REPLACEMENT MC SCH (08:00)
[2017-06-03] MEDS: sacubitril/valsartan 24mg-26mg tablet PO SCH ×2 (08:00→20:00)
[2017-06-03] MEDS: multivitamins, therapeutics tablet PO SCH (08:16)
[2017-06-03] MEDS: potassium Cl 20 mEq SR tablet PO SCH (08:16)
[2017-06-03] MEDS: ferrous sulfate 325mg tablet PO SCH (08:16)
[2017-06-03] MEDS: pantoprazole 40mg Tablet.DR PO SCH ×2 (08:16→20:58)
[2017-06-03] MEDS: amiodarone 200mg tablet PO SCH (08:16)
[2017-06-03] MEDS: atorvastatin 20mg tablet PO SCH (08:17)
[2017-06-03] MEDS: metoclopramide 5 mg/ml inj IV PRN ×2 (10:09→17:15)
[2017-06-03] MEDS ORDERED: LIDOcaine 1%/PF (10mg/ml) 5ml vial ONE (11:18)
[2017-06-03] MEDS ORDERED: HYDROmorphone inj. 0.5 MG/0.5 ML DISP.SYRIN IM ONE (11:25)
[2017-06-03] MEDS ORDERED: HYDROmorphone inj. 0.5 MG/0.5 ML DISP.SYRIN IV ONE (11:35)
[2017-06-03 13:44] LABS: LYMPHOCYTES,BODY FLUID 65 %; MONOCYTES,BODY FLUID 15 %; NEUTROPHILS,BODY FLUID 20 %
[2017-06-03 13:45] LABS: BF WBC COUNT 175 /CU MM (0-1000); BFAPPEAR HAZY; BFCOLOR YELLOW; BFVOLUME 50 ML
[2017-06-03 13:46] LABS: BF RBC COUNT 2250 /CU MM
[2017-06-03] MEDS: polyethylene glycol 3350 17gm powd pack PO SCH (20:58)
[2017-06-03] MEDS: LORazepam 1 MG tablet PO PRN (20:58)
[2017-06-03] MEDS ORDERED: DOBUTamine-DoBUTrex 500mg/D5W 250 ML IV SCH (22:00)
[2017-06-04] VITALS (15 sets, daily range): BP systolic 84–154; BP diastolic 42–78
[2017-06-04] MEDS: DOBUTamine-DoBUTrex 500mg/D5W 250 ML IV SCH ×2 (03:40→17:38)
[2017-06-04 05:41] LABS: BASOPHILS # (AUTO) 0.1 X10'3 (0-0.2); BASOPHILS % (AUTO) 0.8 % (0-1); EOSINOPHILS # (AUTO) 0.1 X10'3 (0-0.9); EOSINOPHILS % (AUTO) 2.1 % (0-6); HEMATOCRIT 25.3 % (42.0-52.0); HEMOGLOBIN 8.1 g/dl (14.0-17.9); LYMPHOCYTES % (AUTO) 16.7 % (21-51); MEAN CORPUSCULAR HEMOGLOBIN 25.6 PG (27.0-31.0); MEAN CORPUSCULAR HGB CONC 32.1 % (33.0-36.5); MEAN CORPUSCULAR VOLUME 79.6 FL (78-98); MEAN PLATELET VOLUME 9.8 FL (7.4-10.4); MONOCYTES # (AUTO) 1.1 X10'3 (0-0.9); MONOCYTES % (AUTO) 17.7 % (2-12); NEUTROPHILS % (AUTO) 62.7 % (42-75); PLATELET COUNT 204 X10'3 (140-440); RED BLOOD COUNT 3.18 X10'6 (4.70-6.10); RED CELL DISTRIBUTION WIDTH 17.1 % (11.5-14.5); WHITE BLOOD COUNT 6.3 X10'3 (4.5-11.0)
[2017-06-04 05:52] LABS: ALBUMIN 2.7 G/DL (3.4-5.0); ANION GAP 9 (8-16); BLOOD UREA NITROGEN 40 MG/DL (7-18); BUN/CREATININE RATIO 19.4 (5.4-32.0); CALCIUM 8.3 MG/DL (8.5-10.1); CHLORIDE 100 MMOL/L (99-107); CREATININE 2.06 MG/DL (0.60-1.10); GLUCOSE 108 MG/DL (70-104); POTASSIUM 3.7 MMOL/L (3.5-5.1); SODIUM 139 MMOL/L (135-145); TOTAL CARBON DIOXIDE 29.9 MMOL/L (24-32); eGFR 32 ML/MIN
[2017-06-04] MEDS: metoclopramide 5 mg/ml inj IV PRN ×3 (07:03→19:36)
[2017-06-04] MEDS: sacubitril/valsartan 24mg-26mg tablet PO SCH ×2 (08:00→19:37)
[2017-06-04] MEDS: K and/or MAG REPLACEMENT MC SCH (08:00)
[2017-06-04] MEDS: furosemide 10 MG/1 ML 10ml inj IV SCH ×3 (09:00→23:54)
[2017-06-04] MEDS: potassium Cl 20 mEq SR tablet PO SCH (09:00)
[2017-06-04] MEDS: pantoprazole 40mg Tablet.DR PO SCH ×2 (09:01→19:36)
[2017-06-04] MEDS: atorvastatin 20mg tablet PO SCH (09:01)
[2017-06-04] MEDS: ferrous sulfate 325mg tablet PO SCH (09:02)
[2017-06-04] MEDS: multivitamins, therapeutics tablet PO SCH (09:02)
[2017-06-04] MEDS: amiodarone 200mg tablet PO SCH (09:03)
[2017-06-04] MEDS: aspirin 81mg tablet.DR PO SCH (09:33)
[2017-06-04] MEDS: oxyCODONE/APAP 10/325mg tablet PO PRN ×2 (13:58→19:43)
[2017-06-04] MEDS: LORazepam 1 MG tablet PO PRN (19:36)
[2017-06-04] MEDS: polyethylene glycol 3350 17gm powd pack PO SCH (21:45)
[2017-06-04] MEDS: temazepam 15mg capsule PO PRN (23:52)
[2017-06-05] VITALS (13 sets, daily range): BP systolic 95–125; BP diastolic 53–71
[2017-06-05] MEDS: metoclopramide 5 mg/ml inj IV PRN ×3 (05:17→17:49)
[2017-06-05 05:50] LABS: BASOPHILS % (AUTO) 0.4 % (0-1); EOSINOPHILS # (AUTO) 0.2 X10'3 (0-0.9); EOSINOPHILS % (AUTO) 3.2 % (0-6); HEMATOCRIT 25.5 % (42.0-52.0); HEMOGLOBIN 8.2 g/dl (14.0-17.9); LYMPHOCYTES # (AUTO) 0.9 X10'3 (1.1-4.8); LYMPHOCYTES % (AUTO) 12.8 % (21-51); MEAN CORPUSCULAR HEMOGLOBIN 25.1 PG (27.0-31.0); MEAN CORPUSCULAR VOLUME 78.6 FL (78-98); MEAN PLATELET VOLUME 9.6 FL (7.4-10.4); MONOCYTES # (AUTO) 1.1 X10'3 (0-0.9); MONOCYTES % (AUTO) 15.4 % (2-12); NEUTROPHILS % (AUTO) 68.2 % (42-75); PLATELET COUNT 211 X10'3 (140-440); RED BLOOD COUNT 3.25 X10'6 (4.70-6.10); RED CELL DISTRIBUTION WIDTH 18.3 % (11.5-14.5); WHITE BLOOD COUNT 7.4 X10'3 (4.5-11.0)
[2017-06-05 05:55] LABS: ALBUMIN 2.8 G/DL (3.4-5.0); ANION GAP 13 (8-16); BLOOD UREA NITROGEN 37 MG/DL (7-18); BUN/CREATININE RATIO 17.9 (5.4-32.0); CALCIUM 8.5 MG/DL (8.5-10.1); CHLORIDE 97 MMOL/L (99-107); CREATININE 2.07 MG/DL (0.60-1.10); GLUCOSE 125 MG/DL (70-104); POTASSIUM 4.1 MMOL/L (3.5-5.1); SODIUM 136 MMOL/L (135-145); TOTAL CARBON DIOXIDE 25.8 MMOL/L (24-32); eGFR 32 ML/MIN
[2017-06-05] MEDS: multivitamins, therapeutics tablet PO SCH (07:36)
[2017-06-05] MEDS: potassium Cl 20 mEq SR tablet PO SCH (07:36)
[2017-06-05] MEDS: amiodarone 200mg tablet PO SCH (07:36)
[2017-06-05] MEDS: ferrous sulfate 325mg tablet PO SCH (07:36)
[2017-06-05] MEDS: pantoprazole 40mg Tablet.DR PO SCH ×2 (07:36→20:16)
[2017-06-05] MEDS: atorvastatin 20mg tablet PO SCH (07:36)
[2017-06-05] MEDS: aspirin 81mg tablet.DR PO SCH (07:36)
[2017-06-05] MEDS: furosemide 10 MG/1 ML 10ml inj IV SCH ×2 (07:48→15:41)
[2017-06-05] MEDS: K and/or MAG REPLACEMENT MC SCH (07:48)
[2017-06-05] MEDS: sacubitril/valsartan 24mg-26mg tablet PO SCH ×2 (07:49→20:00)
[2017-06-05] MEDS ORDERED: heparin, porcine 5000 units/ml vial SQ SCH (08:00)
[2017-06-05] MEDS ORDERED: apixaban 5mg tablet PO SCH (08:00)
[2017-06-05] MEDS: oxyCODONE/APAP 10/325mg tablet PO PRN ×2 (10:09→15:40)
[2017-06-05] MEDS: DOBUTamine-DoBUTrex 500mg/D5W 250 ML IV SCH (10:09)
[2017-06-05 12:36] LABS: ANISOCYTOSIS 2+; PLATELET ESTIMATE NORMAL
[2017-06-05 12:37] LABS: ELLIPTOCYTES FEW; SCHISTOCYTES FEW; STOMATOCYTES FEW
[2017-06-05 12:38] LABS: BURR CELLS FEW; HYPOCHROMASIA 1+; POLYCHROMASIA FEW
[2017-06-05] MEDS: polyethylene glycol 3350 17gm powd pack PO SCH (20:16)
[2017-06-05] MEDS: apixaban 5mg tablet PO SCH (20:16)
[2017-06-05] MEDS: LORazepam 1 MG tablet PO PRN (20:22)
[2017-06-06] VITALS (11 sets, daily range): BP systolic 97–128; BP diastolic 51–68
[2017-06-06] MEDS: furosemide 10 MG/1 ML 10ml inj IV SCH ×3 (00:25→16:00)
[2017-06-06] MEDS: temazepam 15mg capsule PO PRN (00:30)
[2017-06-06] MEDS: metoclopramide 5 mg/ml inj IV PRN ×3 (05:37→17:29)
[2017-06-06 06:38] LABS: BASOPHILS % (AUTO) 0.6 % (0-1); EOSINOPHILS # (AUTO) 0.1 X10'3 (0-0.9); EOSINOPHILS % (AUTO) 1.3 % (0-6); HEMATOCRIT 25.7 % (42.0-52.0); HEMOGLOBIN 8.2 g/dl (14.0-17.9); LYMPHOCYTES # (AUTO) 0.9 X10'3 (1.1-4.8); LYMPHOCYTES % (AUTO) 10.9 % (21-51); MEAN CORPUSCULAR HEMOGLOBIN 25.1 PG (27.0-31.0); MEAN CORPUSCULAR VOLUME 78.6 FL (78-98); MEAN PLATELET VOLUME 9.4 FL (7.4-10.4); MONOCYTES # (AUTO) 1.2 X10'3 (0-0.9); MONOCYTES % (AUTO) 15.6 % (2-12); NEUTROPHILS # (AUTO) 5.6 X10'3 (1.8-7.7); NEUTROPHILS % (AUTO) 71.6 % (42-75); PLATELET COUNT 219 X10'3 (140-440); RED BLOOD COUNT 3.27 X10'6 (4.70-6.10); RED CELL DISTRIBUTION WIDTH 18.6 % (11.5-14.5); WHITE BLOOD COUNT 7.8 X10'3 (4.5-11.0)
[2017-06-06 06:53] LABS: ALBUMIN 2.7 G/DL (3.4-5.0); ANION GAP 9 (8-16); BLOOD UREA NITROGEN 40 MG/DL (7-18); BUN/CREATININE RATIO 17.1 (5.4-32.0); CALCIUM 8.5 MG/DL (8.5-10.1); CHLORIDE 99 MMOL/L (99-107); CREATININE 2.34 MG/DL (0.60-1.10); GLUCOSE 108 MG/DL (70-104); POTASSIUM 4.5 MMOL/L (3.5-5.1); SODIUM 135 MMOL/L (135-145); TOTAL CARBON DIOXIDE 27.2 MMOL/L (24-32); eGFR 28 ML/MIN
[2017-06-06] MEDS: DOBUTamine-DoBUTrex 500mg/D5W 250 ML IV SCH (07:21)
[2017-06-06 07:56] LABS: ANISOCYTOSIS 2+; HYPOCHROMASIA 1+; MICROCYTOSIS 1+; PLATELET ESTIMATE NORMAL; POLYCHROMASIA 2+; TARGET CELLS FEW
[2017-06-06 07:57] LABS: POIKILOCYTOSIS FEW
[2017-06-06] MEDS: sacubitril/valsartan 24mg-26mg tablet PO SCH ×2 (08:00→19:07)
[2017-06-06] MEDS: K and/or MAG REPLACEMENT MC SCH (08:00)
[2017-06-06] MEDS: aspirin 81mg tablet.DR PO SCH (08:31)
[2017-06-06] MEDS: potassium Cl 20 mEq SR tablet PO SCH (08:31)
[2017-06-06] MEDS: ferrous sulfate 325mg tablet PO SCH (08:31)
[2017-06-06] MEDS: multivitamins, therapeutics tablet PO SCH (08:31)
[2017-06-06] MEDS: pantoprazole 40mg Tablet.DR PO SCH ×2 (08:31→19:05)
[2017-06-06] MEDS: amiodarone 200mg tablet PO SCH (08:31)
[2017-06-06] MEDS: atorvastatin 20mg tablet PO SCH (08:32)
[2017-06-06] MEDS: apixaban 5mg tablet PO SCH ×2 (08:32→19:05)
[2017-06-06] MEDS: oxyCODONE/APAP 10/325mg tablet PO PRN ×2 (08:32→13:21)
[2017-06-06] MEDS ORDERED: DOBUTamine-DoBUTrex 500mg/D5W 250 ML IV SCH (10:55)
[2017-06-06 11:19] LABS: LACTATE DEHYDROGENASE 267 U/L (85-227)
[2017-06-06] MEDS ORDERED: LIDOcaine 1%/PF (10mg/ml) 5ml vial ONE (13:57)
[2017-06-06 15:16] LABS: BFSOURCE RIGHT PLEURAL FLD
[2017-06-06 15:26] LABS: LDH,BODY FLUID 58 U/L
[2017-06-06 15:36] LABS: TOTAL PROTEIN,BODY FLUID < 2.0 G/DL
[2017-06-06 15:44] LABS: BF MESOTHELIAL CELLS FEW; BF RBC COUNT 4375 /CU MM; BF WBC COUNT 80 /CU MM (0-1000); BFAPPEAR CLOUDY; BFCOLOR AMBER; BFVOLUME 58 ML; LYMPHOCYTES,BODY FLUID 55 %; MONOCYTES,BODY FLUID 23 %; NEUTROPHILS,BODY FLUID 22 %
[2017-06-06] MEDS: LORazepam 1 MG tablet PO PRN (19:01)
[2017-06-06] MEDS: polyethylene glycol 3350 17gm powd pack PO SCH (20:06)
[2017-06-07] VITALS (8 sets, daily range): BP systolic 105–126; BP diastolic 47–66
[2017-06-07] MEDS: temazepam 15mg capsule PO PRN (00:33)
[2017-06-07] MEDS: furosemide 10 MG/1 ML 10ml inj IV SCH ×2 (00:34→07:38)
[2017-06-07] MEDS: oxyCODONE/APAP 10/325mg tablet PO PRN ×2 (05:07→09:08)
[2017-06-07] MEDS: metoclopramide 5 mg/ml inj IV PRN ×2 (05:07→11:42)
[2017-06-07 06:09] LABS: BASOPHILS # (AUTO) 0.1 X10'3 (0-0.2); BASOPHILS % (AUTO) 0.7 % (0-1); EOSINOPHILS # (AUTO) 0.2 X10'3 (0-0.9); EOSINOPHILS % (AUTO) 2.4 % (0-6); HEMATOCRIT 27.2 % (42.0-52.0); HEMOGLOBIN 8.5 g/dl (14.0-17.9); LYMPHOCYTES % (AUTO) 11.6 % (21-51); MEAN CORPUSCULAR HEMOGLOBIN 24.7 PG (27.0-31.0); MEAN CORPUSCULAR HGB CONC 31.4 % (33.0-36.5); MEAN CORPUSCULAR VOLUME 78.9 FL (78-98); MEAN PLATELET VOLUME 9.7 FL (7.4-10.4); MONOCYTES # (AUTO) 1.4 X10'3 (0-0.9); MONOCYTES % (AUTO) 16.3 % (2-12); PLATELET COUNT 251 X10'3 (140-440); RED BLOOD COUNT 3.45 X10'6 (4.70-6.10); RED CELL DISTRIBUTION WIDTH 18.4 % (11.5-14.5); WHITE BLOOD COUNT 8.7 X10'3 (4.5-11.0)
[2017-06-07 06:35] LABS: ALBUMIN 2.8 G/DL (3.4-5.0); ANION GAP 12 (8-16); BLOOD UREA NITROGEN 45 MG/DL (7-18); BUN/CREATININE RATIO 17.8 (5.4-32.0); CALCIUM 8.7 MG/DL (8.5-10.1); CHLORIDE 98 MMOL/L (99-107); CREATININE 2.53 MG/DL (0.60-1.10); GLUCOSE 107 MG/DL (70-104); POTASSIUM 4.8 MMOL/L (3.5-5.1); SODIUM 134 MMOL/L (135-145); TOTAL CARBON DIOXIDE 24.2 MMOL/L (24-32); eGFR 25 ML/MIN
[2017-06-07 07:14] LABS: ACANTHOCYTES 1+; ANISOCYTOSIS 2+; HYPOCHROMASIA 1+; MICROCYTOSIS 1+; PLATELET ESTIMATE NORMAL; POLYCHROMASIA 1+; SCHISTOCYTES FEW; TARGET CELLS 1+
[2017-06-07 07:15] LABS: ELLIPTOCYTES 1+
[2017-06-07] MEDS: multivitamins, therapeutics tablet PO SCH (07:39)
[2017-06-07] MEDS: pantoprazole 40mg Tablet.DR PO SCH (07:39)
[2017-06-07] MEDS: apixaban 5mg tablet PO SCH (07:39)
[2017-06-07] MEDS: aspirin 81mg tablet.DR PO SCH (07:39)
[2017-06-07] MEDS: ferrous sulfate 325mg tablet PO SCH (07:39)
[2017-06-07] MEDS: amiodarone 200mg tablet PO SCH (07:39)
[2017-06-07] MEDS: atorvastatin 20mg tablet PO SCH (07:40)
[2017-06-07] MEDS: K and/or MAG REPLACEMENT MC SCH (08:00)
[2017-06-07] MEDS: potassium Cl 20 mEq SR tablet PO SCH (08:00)
[2017-06-07] MEDS: sacubitril/valsartan 24mg-26mg tablet PO SCH (08:00)
[2017-06-07] MEDS ORDERED: TEMA7.5C PO (12:36)
[2017-06-07] MEDS ORDERED: PSYL3.4P5 PO (12:36)
[2017-06-07] MEDS ORDERED: METO-292 PO (12:36)
[2017-06-07] MEDS ORDERED: PANT40TA4 PO (12:36)
[2017-06-07] MEDS ORDERED: AMOX-419 PO (12:36)
[2017-06-07] MEDS ORDERED: amiodarone 150mg/dext, iso-os 100 ML IV ONE (15:40)
[2017-06-07] MEDS ORDERED: amiodarone/D5 450MG/250ML BAG 250 ML IV SCH (15:40)
== END 2017-06-07 14:00 | disposition home health service (06) | DRG 291 ==
LOC: ER 11:34 → ED HOLD 15:42 → PCU 3S 17:10 → CMPBEDREQ 19:26 → PCU 3S 19:57
PROVIDERS: ADMIT Hospitalist; ATTEND Family Medicine
PROC: 0W993ZZ Drainage of Right Pleural Cavity, Percutaneous Approach (ICD-10-PCS; principal; 2017-06-03)
PROC: 0W993ZZ Drainage of Right Pleural Cavity, Percutaneous Approach (ICD-10-PCS; 2017-06-06)
DX: I13.0 Hypertensive heart and chronic kidney disease with heart failure and stage 1 through stage 4 chronic kidney disease, or unspecified chronic kidney disease (principal); I50.23 Acute on chronic systolic (congestive) heart failure; J91.8 Pleural effusion in other conditions classified elsewhere; E86.0 Dehydration; I48.0 Paroxysmal atrial fibrillation; Z99.81 Dependence on supplemental oxygen; D63.8 Anemia in other chronic diseases classified elsewhere; K31.84 Gastroparesis; G47.00 Insomnia, unspecified; I25.10 Atherosclerotic heart disease of native coronary artery without angina pectoris; N18.9 Chronic kidney disease, unspecified; I25.5 Ischemic cardiomyopathy; J44.9 Chronic obstructive pulmonary disease, unspecified; I73.9 Peripheral vascular disease, unspecified; K59.00 Constipation, unspecified; Z66 Do not resuscitate; I25.2 Old myocardial infarction; Z91.19 Patient's noncompliance with other medical treatment and regimen; Z95.1 Presence of aortocoronary bypass graft; Z88.8 Allergy status to other drugs, medicaments and biological substances; Z88.5 Allergy status to narcotic agent; Z88.1 Allergy status to other antibiotic agents; Z88.6 Allergy status to analgesic agent; Z79.899 Other long term (current) drug therapy; Z79.01 Long term (current) use of anticoagulants; Z79.82 Long term (current) use of aspirin; Z87.891 Personal history of nicotine dependence; Z82.49 Family history of ischemic heart disease and other diseases of the circulatory system
CPT/HCPCS: 32555; 36415; 71045; 71250; 80048; 80053; 83615; 83880; 83986; 84157; 84439; 84443; 84484; 85025; 85610; 85730; 87070; 87502; 87503; 88108; 88305; 89051; 93005; 96374; 96375; 99285; A6212; C9113; J1170; J1250; J1940; J2001; J2405; J2765

== ENCOUNTER 2017-06-18 09:14 | Day surgery (SDC) | payer MEDICARE, MEDICAID ==
[~2017-06-18 09:14] MED LIST changes: +METO-292 PO; +PSYL3.4P5 PO; +TEMA7.5C PO
[2017-06-18] MEDS ORDERED: LIDOcaine 1% 30ml preserv. free vial SQ ONE (09:25)
[2017-06-18 09:47] VITALS: BP 126/64
[2017-06-18 10:27] VITALS: BP 98/61
[2017-06-18 10:43] VITALS: BP 116/71
[2017-06-18 10:58] VITALS: BP 110/72
[2017-06-18] MEDS ORDERED: PANT-47 PO (15:01)
[2017-06-18] MEDS ORDERED: TEMA30CA5 PO (15:01)
[2017-06-18] MEDS ORDERED: METO-292 PO (15:01)
[2017-06-18] MEDS ORDERED: FURO-150 PO (15:01)
== END 2017-06-18 11:00 | disposition home or self-care (01) ==
LOC: SSTAY O 09:14
PROVIDERS: ATTEND Radiology Vascular & Interventional Radiology
DX: J90 Pleural effusion, not elsewhere classified (principal); I11.0 Hypertensive heart disease with heart failure; I50.9 Heart failure, unspecified; J44.9 Chronic obstructive pulmonary disease, unspecified; I25.10 Atherosclerotic heart disease of native coronary artery without angina pectoris; I48.91 Unspecified atrial fibrillation; Z88.1 Allergy status to other antibiotic agents; Z88.8 Allergy status to other drugs, medicaments and biological substances; Z98.890 Other specified postprocedural states; Z87.891 Personal history of nicotine dependence; Z80.9 Family history of malignant neoplasm, unspecified; Z82.49 Family history of ischemic heart disease and other diseases of the circulatory system
CPT/HCPCS: 32555; 71045; J3490

== ENCOUNTER 2017-06-24 10:37 | Inpatient (IN) | payer MEDICARE, MEDICAID ==
[~2017-06-24] VITALS: Ht 188 cm; Wt 100.0 kg
[~2017-06-24 10:37] MED LIST changes: +FURO-150 PO; -FURO40TA4 PO; +PANT-47 PO; -PANT40TA4 PO; -PSYL3.4P5 PO; -SACU1TAB PO; +TEMA30CA5 PO; -TEMA7.5C PO
[2017-06-24] MEDS ORDERED: morphine 4 MG/ML inj SYRINge ONE (11:09)
[2017-06-24] MEDS ORDERED: morphine 4 MG/ML inj SYRINge IV ONE ×2 (11:10→11:40)
[2017-06-24] MEDS ORDERED: LORazepam 2 mg/ml vial IV PRN (12:45)
[2017-06-24] MEDS ORDERED: morphine 10mg/ml inj. IV PRN (12:45)
[2017-06-24] MEDS ORDERED: morphine 10mg/0.5ml (conc. morphine) oral syringe PO PRN (12:45)
[2017-06-24] MEDS ORDERED: mag hydrox/Alum hydrox/simeth 30ml oral suspension PO PRN (12:50)
[2017-06-24] MEDS ORDERED: acetaminophen 325mg tablet PO PRN (12:50)
[2017-06-24] MEDS ORDERED: morphine 4 MG/ML inj SYRINge IV PRN (12:50)
[2017-06-24] MEDS ORDERED: ondansetron/PF 4mg/2ml inj IV PRN (12:50)
[2017-06-24] MEDS ORDERED: magnesium hydroxide 30ml (MOM) UD suspension PO PRN (12:50)
[2017-06-24 14:30] VITALS: BP 80/60
[2017-06-24] MEDS ORDERED: sennosides/docusate sodium tablet PO SCH (20:00)
[2017-06-24] MEDS ORDERED: docusate sod 100mg capsule PO SCH (20:00)
== END 2017-06-24 16:30 | disposition expired | DRG 189 ==
LOC: ER 10:38 → ED HOLD 12:48 → EDBEDREQ 14:16 → ORTHO 4S 14:30
PROVIDERS: ADMIT Internal Medicine; ATTEND Internal Medicine
DX: J96.01 Acute respiratory failure with hypoxia (principal); I13.0 Hypertensive heart and chronic kidney disease with heart failure and stage 1 through stage 4 chronic kidney disease, or unspecified chronic kidney disease; I24.9 Acute ischemic heart disease, unspecified; I48.91 Unspecified atrial fibrillation; I50.9 Heart failure, unspecified; E78.00 Pure hypercholesterolemia, unspecified; R55 Syncope and collapse; F12.90 Cannabis use, unspecified, uncomplicated; I25.10 Atherosclerotic heart disease of native coronary artery without angina pectoris; J44.9 Chronic obstructive pulmonary disease, unspecified; N18.9 Chronic kidney disease, unspecified; Z66 Do not resuscitate; Z51.5 Encounter for palliative care; I25.2 Old myocardial infarction; Z95.1 Presence of aortocoronary bypass graft; Z88.5 Allergy status to narcotic agent; Z88.8 Allergy status to other drugs, medicaments and biological substances; Z91.030 Bee allergy status; Z79.899 Other long term (current) drug therapy; Z84.89 Family history of other specified conditions
CPT/HCPCS: A6213; A6449; J2060; J2270